=== PATIENT | male | born 1960 | race Caucasian/White ===

== ENCOUNTER 2020-03-06 12:00 | Inpatient (IN) | payer SELFPAY ==
[~2020-03-06] VITALS: Ht 182.9 cm; Wt 75.6 kg
--- NOTE | 2020-03-06 12:02 | ED General ---
General Chief Complaint: Altered Mental Status Stated Complaint: AMS Source of Information: Patient History of Present Illness Date Seen by Provider: Mar 06, 2020 Time Seen by Provider: 12:02 Initial Comments Patient is a 59 y/o male who comes to the ER today c/o diffuse weakness, dizziness, lightheadedness, and vomiting with diarrhea. He has been ill over the last month with recurrent diarrhea which he states he has recently lost control over. He has also been having loss of urinary control over the last week. C/o feeling very dizzy and generally weak, now too weak to feel steady even walking about his house. Symptoms have been occurring over the last month. He reports having labs completed last week and was eventually called by his provider and told to go to the hospital immediately possibly for something wrong with his liver. He does regularly drink 1/2 pint of hard liquor daily but denies prior hx of etoh w/d symptoms. Denies abdominal pain, blood in emesis or stool. No melena. Last emesis was earlier this am but he reports complete inability to keep any food or fluid down. Allergies and Home Medications Allergies Coded Allergies: codeine (Verified Allergy, Unknown, itching, 03/06/20) lisinopril (Verified Allergy, Unknown, angioedema , 03/06/20) Patient Home Medication List Home Medication List Reviewed: Yes Review of Systems Review of Systems Constitutional: chills, dizziness, malaise, weakness, weight loss EENTM: nose congestion Respiratory: phlegm Cardiovascular: no symptoms reported Gastrointestinal: see HPI Genitourinary: see HPI Musculoskeletal: see HPI, muscle weakness Skin: change in color All Other Systems Reviewed Negative Unless Noted: Yes Physical Exam Vital Signs Vital Signs - First Documented 03/06/20 12:06 Temp 35.8 Pulse 83 Resp 16 B/P (MAP) 133/87 (102) Pulse Ox 97 Capillary Refill : Height, Weight, BMI Height: '" Weight: lbs. oz. kg; BMI Method: General Appearance: Other (ill-appearing 59 y/o male but in no acute distress) Eyes: Bilateral Eye Conjunctivae Pale HEENT: PERRL/EOMI, TMs Normal, Pharynx Normal, Pale Conjunctivae (L) Neck: Full Range of Motion, Supple Respiratory: Lungs Clear Cardiovascular: Regular Rate, Rhythm, No Edema Gastrointestinal: Non Tender, Soft, Other (healed midline incision) Extremity: Normal Capillary Refill Neurologic/Psychiatric: Alert, Oriented x3, No Motor/Sensory Deficits, Normal Mood/Affect, Other (general weakness but no focal neurologic defecits) Skin: Jaundice, Other (pale) Focused Exam Lactate Level 03/06/20 12:10: Lactic Acid Level 2.34*H 03/06/20 15:00: Lactic Acid Level Laboratory Tests Test 03/06/20 12:10 03/06/20 15:00 Lactic Acid Level 2.34 MMOL/L (0.50-2.00) *H Progress/Results/Core Measures Suspected Sepsis SIRS Temperature: Pulse: Respiratory Rate: Laboratory Tests 03/06/20 12:10: White Blood Count 7.7 Blood Pressure / Mean: 03/06/20 12:10: Lactic Acid Level 2.34*H 03/06/20 15:00: Laboratory Tests 03/06/20 12:10: Creatinine 1.35H, INR Comment 0.9, Platelet Count 192, Total Bilirubin 2.8H Results/Orders Lab Results Laboratory Tests Test 03/06/20 12:10 03/06/20 13:39 03/06/20 15:00 Range/Units White Blood Count 7.7 4.3-11.0 10^3/uL Red Blood Count 3.01 L 4.35-5.85 10^6/uL Hemoglobin 10.6 L 13.3-17.7 G/DL Hematocrit 31 L 40-54 % Mean Corpuscular Volume 102 H 80-99 FL Mean Corpuscular Hemoglobin 35 H 25-34 PG Mean Corpuscular Hemoglobin Concent 35 32-36 G/DL Red Cell Distribution Width 13.5 10.0-14.5 % Platelet Count 192 130-400 10^3/uL Mean Platelet Volume 10.8 H 7.4-10.4 FL Neutrophils (%) (Auto) 81 H 42-75 % Lymphocytes (%) (Auto) 9 L 12-44 % Monocytes (%) (Auto) 10 0-12 % Eosinophils (%) (Auto) 0 0-10 % Basophils (%) (Auto) 0 0-10 % Neutrophils # (Auto) 6.2 1.8-7.8 X 10^3 Lymphocytes # (Auto) 0.7 L 1.0-4.0 X 10^3 Monocytes # (Auto) 0.7 0.0-1.0 X 10^3 Eosinophils # (Auto) 0.0 0.0-0.3 10^3/uL Basophils # (Auto) 0.0 0.0-0.1 10^3/uL Prothrombin Time 12.5 12.2-14.7 SEC INR Comment 0.9 0.8-1.4 Activated Partial Thromboplast Time 27 24-35 SEC Sodium Level 137 135-145 MMOL/L Potassium Level 3.6 3.6-5.0 MMOL/L Chloride Level 95 L 98-107 MMOL/L Carbon Dioxide Level 24 21-32 MMOL/L Anion Gap 18 H 5-14 MMOL/L Blood Urea Nitrogen 23 H 7-18 MG/DL Creatinine 1.35 H 0.60-1.30 MG/DL Estimat Glomerular Filtration Rate 54 BUN/Creatinine Ratio 17 Glucose Level 153 H 70-105 MG/DL Lactic Acid Level 2.34 *H 0.50-2.00 MMOL/L Calcium Level 9.0 8.5-10.1 MG/DL Corrected Calcium 9.5 8.5-10.1 MG/DL Total Bilirubin 2.8 H 0.1-1.0 MG/DL Aspartate Amino Transf (AST/SGOT) 409 H 5-34 U/L Alanine Aminotransferase (ALT/SGPT) 190 H 0-55 U/L Alkaline Phosphatase 270 H 40-136 U/L Troponin I < 0.30 <0.30 NG/ML Total Protein 6.7 6.4-8.2 GM/DL Albumin 3.4 3.2-4.5 GM/DL Serum Alcohol < 10 <10 MG/DL Urine Color RAMON H Urine Clarity CLEAR Urine pH 6.0 5-9 Urine Specific Covel 1.010 L 1.016-1.022 Urine Protein TRACE H NEGATIVE Urine Glucose (UA) NEGATIVE NEGATIVE Urine Ketones TRACE H NEGATIVE Urine Nitrite NEGATIVE NEGATIVE Urine Bilirubin 1+ H NEGATIVE Urine Urobilinogen 2.0 < = 1.0 MG/DL Urine Leukocyte Esterase NEGATIVE NEGATIVE Urine RBC (Auto) NEGATIVE NEGATIVE Urine RBC NONE /HPF Urine WBC 0-2 /HPF Urine Squamous Epithelial Cells 0-2 /HPF Urine Crystals NONE /LPF Urine Bacteria TRACE /HPF Urine Casts PRESENT /LPF Urine Hyaline Casts 0-2 H /LPF Urine Mucus NEGATIVE /LPF Urine Culture Indicated NO My Orders Orders - GALEAS,JONO L DO Ed Iv/Invasive Line Start (03/06/20 12:05) Cbc With Automated Diff (03/06/20 12:05) Comprehensive Metabolic Panel (03/06/20 12:05) Lactic Acid Analyzer (03/06/20 12:05) Troponin I Fs (03/06/20 12:05) Thyroid Stimulating Hormone (03/06/20 12:05) Alcohol (03/06/20 12:05) Protime With Inr (03/06/20 12:05) Partial Thromboplastin Time (03/06/20 12:05) Urinalysis (03/06/20 12:05) Ekg Tracing (03/06/20 12:05) Ns Iv 1000 Ml (Sodium Chloride 0.9%) (03/06/20 12:30) Ct Head Wo (03/06/20 12:52) Ct Chest/Abdomen/Pelvis W (03/06/20 12:52) Iohexol Injection (Omnipaque 350 Mg/Ml 1 (03/06/20 13:00) Received Contrast (Hold Metformin- Contr (03/06/20 13:00) Sodium Chloride Flush (Catheter Flush Sy (03/06/20 13:00) Ns (Ivpb) (Sodium Chloride 0.9% Ivpb Bag (03/06/20 13:00) Ns Iv 1000 Ml (Sodium Chloride 0.9%) (03/06/20 14:00) Lipase (03/06/20 14:47) Medications Given in ED Current Medications Medications Dose Ordered Sig/Estela Route Start Time Stop Time Status Last Admin Dose Admin Iohexol 100 ml ONCE ONCE IV 03/06/20 13:00 03/06/20 13:01 DC 03/06/20 13:18 100 ML Sodium Chloride 10 ml NEEDED PRN IV 03/06/20 13:00 03/06/20 13:18 10 ML Sodium Chloride 100 ml ONCE ONCE IV 03/06/20 13:00 03/06/20 13:01 DC 03/06/20 13:18 80 ML Vital Signs/I&O 03/06/20 12:06 Temp 35.8 Pulse 83 Resp 16 B/P (MAP) 133/87 (102) Pulse Ox 97 Capillary Refill : Progress Note : Time: 10:15 Progress Note Patient is seen and examined. Labs ordered. Will check EKG and give IVF's. UA. He does not c/o pain at this time. ED Summary: Patient seen in the emergency department for generalized weakness. This was true on physical exam. Patient had difficulty even taking a few steps across his exam room. He did not have any focal neurologic complaints. He also endorses significant weight loss in recent weeks. CT scan of the head was com pleted primary to rule out any mass effect and this was not present. CT scan of the abdomen and pelvis was also completed and this was revealing only for known history of bypass graft surgeries and finding of fatty liver. No biliary tree pathology noted. On exam, the patient is mildly jaundiced and pale and weak appearing but with no focal neuro deficits. BUN/creatinine are mildly elevated as well as lactate. Patient is given 2 L of normal saline in the emergency department. Following this however he does not feel improved and continues to have generalized weakness. Feel that the patient may benefit from inpatient hydration therapy and further evaluation of his transaminitis and elevated bilirubin also. I spoke with Dr. Marin who is willing to admit the patient. Inpatient orders written and did request stool studies and right upper quadrant ultrasound. Patient denies that he has had withdrawal symptoms in the past and medical surgical bed is appropriate for this patient. He is agreeable to the plan of care. ECG Initial ECG Impression Date: Mar 06, 2020 Initial ECG Impression Time: 12:29 Initial ECG Rate: 82 Initial ECG Intervals: QT (prolonged) Departure Communication (Admissions) Time/Spoke to Admitting Phy: 14:50 Dr. Marin Impression Primary Impression: Diarrhea Additional Impressions: Dehydration Generalized weakness Elevated bilirubin Transaminitis Disposition: ADMITTED INPATIENT Condition: Improved Admissions Decision to Admit Reason: Admit from ER (General) Decision to Admit/Date: Mar 06, 2020 Time/Decision to Admit Time: 14:30 JONO GALEAS DO Mar 06, 2020 12:02
--- OUTSIDE RECORDS SUMMARY | 2020-03-06 12:07 | XMS REPORT ---
Author Author Rya DUMONT Organization [facility] Address [address] [place] [address] Care Team Providers Care Air Defense Specialist Name Role Phone MONIQUE DUMONT Unavailable PROBLEMS Type Condition ICD9-CM Code [id number] Code Onset Dates Condition S tatus SNOMED Code Problem Coronary artery disease invo lving [place] coronary artery of [place] heart without angina pectoris I25.10 Active 1641 792002642 Problem Essential hypertension I10 Active 54298373 Problem History of myocardial infarct at age less than 60 years I25.2 Active 903380207 Problem Hypercholesteremia E78.00 Active 1 0945765 Problem Situational depression F43.21 Active 69693096 Problem Peripheral arterial disease I73.9 Ac tive 225513947 ALLERGIES Substance Reaction Event Type Date Status Lisinopril Swelling Drug Allergy Sep, Active Codeine Phosphate itching Drug Allergy Sep, Active Abilify dizziness Drug Allergy Sep, Active ENCOUNTERS Encounter Location Date Diagnosis [address] [address] Sep, Situational depression F43.21 ; [facility] hypertension I10 and Peripheral arterial disease I73.[address] [address] Aug, Situational depression F43.21 ; Coronary artery disease involving [place] coronary artery of [place] heart without angina pectoris I25.10 ; History of myocardial infarct at age less than 60 years I25.2 ; Peripheral arterial disease I73.9 and Essential hypertension I10 IMMUNIZATIONS No Known Immunizations SOCIAL HISTORY Never Assessed REASON FOR VISIT Depression PLAN OF CARE Activity Details Follow Up 4 Weeks Reason:med refill VITAL SIGNS Height 72 in 2018 Heart Rate 80 bpm 2018 Respiratory Rate 18 2018 Blood pressure systolic 100 mmHg 2018 Blood pressure diastolic 80 mmHg 2018 MEDICATIONS Medication Instructions Dosage Frequency Start Date End Date Duration S tat Alprazolam 0.5 mg Orally Twice a day 1 tablet am and half tablet pm as needed 12h 28 days Active Protonix 40 MG Orally Once a day 1 tablet 24h 30 day (s) Active Plavix 75 MG Orally Once a day 1 tablet 24h 30 day(s ) Active Toprol XL 100 MG Orally Once a day 1 tablet 24h 30 d ay(s) Active Aspirin 81 81 MG Orally Once a day 1 tablet 24h 30 d ay(s) Active Lipitor 80 MG Orally Once a day 1 tablet 24h 30 day( s) Active Amlodipine Besylate 5 MG Orally Once a day 1 tablet 24h 30 day(s) Active Citalopram Hydrobromide 40 MG Orally Once a day 1 tablet 24h 30 day(s) Active Nitroglycerin 0.4 MG as directed Active Microzide 12.5 MG Orally Once a day 1 capsule in the morning 24h 30 day(s) Active Trazodone HCl 50 MG Orally Once a day 1 tablet at bedtime as needed 24h Sep, 30 day(s) Active Losartan Potassium 50 MG Orally Once a day 1 tablet 24h 30 day(s) Active RESULTS No Results PROCEDURES Procedure Date Ordered Result Body Site VENIPUNCT, ROUTINE* 2018 COMPREHEN METABOLIC PANEL 2018 09 PANEL (PROFILE 1) 2018 INSTRUCTIONS MEDICATIONS ADMINISTERED No Known Medications MEDICAL (GENERAL) HISTORY Type Description Date Medical History depression Medical History hypertension Medical History myocardial infarction Medical History Incisional Hernia Medical History Pure hypercholesterolemia, unspecified Surgical History Ventral hernia repair 2015 Surgical History abdominal aorta/iliac graft 2014 Surgical History Coronary artery stent 2014 Surgical History inguinal hernia repair
--- OUTSIDE RECORDS SUMMARY | 2020-03-06 12:07 | XMS REPORT | Continuity of Care Document ---
Author Organization Unknown Address Unknown Phone Unavailable Allergies There is no data. Medications There is no data. Problems There is no data. Procedures There is no data. Results Test Result Range - 09 PANEL (PROFILE 1) - 10/01/18 14 :45 Prescribed Drug 1 Alprazolam NRG Creatinine 173.0 mg/dL > or = 20.0 pH 6.55 4.5 - 9.0 Oxidant NEGATIVE mcg/mL <200 Amphetamines NEGATIVE ng/mL <500 medMATCH Amphetamines CONSISTENT NRG Benzodiazepines POSITIVE ng/mL <100 Marijuana Metabolite POSITIVE ng/mL <20 Cocaine Metabolite NEGATIVE ng/mL <150 medMATCH Cocaine Metab CONSISTENT NRG Opiates NEGATIVE ng/mL <100 medMATCH Opiates CONSISTENT NRG Oxycodone NEGATIVE ng/mL <100 medMATCH Oxycodone CONSISTENT NRG COMMENT NRG Alphahydroxyalprazolam 236 ng/mL <25 medMATCH aOH alprazolam CONSISTENT NRG Alphahydroxymidazolam NEGATIVE ng/mL < 50 medMATCH aOH midazolam CONSISTENT NRG Alphahydroxytriazolam NEGATIVE ng/mL < 50 medMATCH aOH triazolam CONSISTENT NRG Aminoclonazepam 68 ng/mL <25 medMATCH Aminoclonazepam INCONSISTENT N RG Hydroxyethylflurazepam NEGATIVE ng/mL <50 medMATCH OH,Et flurazepam CONSISTENT NR G Lorazepam NEGATIVE ng/mL <50 medMATCH Lorazepam CONSISTENT NRG Nordiazepam NEGATIVE ng/mL <50 medMATCH Nordiazepam CONSISTENT NRG Oxazepam NEGATIVE ng/mL <50 medMATCH Oxazepam CONSISTENT NRG Temazepam NEGATIVE ng/mL <50 medMATCH Temazepam CONSISTENT NRG Marijuana Metabolite 418 ng/mL <5 medMATCH Marijuana Metab INCONSISTENT N RG Barbiturates NEGATIVE ng/mL <300 medMATCH Barbiturates CONSISTENT NRG Methadone Metabolite NEGATIVE ng/mL <100 medMATCH Methadone Metab CONSISTENT NRG Phencyclidine NEGATIVE ng/mL <25 medMATCH Phencyclidine CONSISTENT NRG PDM - 09 PANEL (PROFILE 1) - 12/30/18 16 :30 Prescribed Drug 1 Alprazolam NRG Creatinine 246.1 mg/dL > or = 20.0 pH 5.61 4.5 - 9.0 Oxidant NEGATIVE mcg/mL <200 Amphetamines NEGATIVE ng/mL <500 medMATCH Amphetamines CONSISTENT NRG Benzodiazepines POSITIVE ng/mL <100 Marijuana Metabolite POSITIVE ng/mL <20 Cocaine Metabolite NEGATIVE ng/mL <150 medMATCH Cocaine Metab CONSISTENT NRG Opiates NEGATIVE ng/mL <100 medMATCH Opiates CONSISTENT NRG Oxycodone NEGATIVE ng/mL <100 medMATCH Oxycodone CONSISTENT NRG COMMENT NRG Alphahydroxyalprazolam 486 ng/mL <25 medMATCH aOH alprazolam CONSISTENT NRG Alphahydroxymidazolam NEGATIVE ng/mL < 50 medMATCH aOH midazolam CONSISTENT NRG Alphahydroxytriazolam NEGATIVE ng/mL < 50 medMATCH aOH triazolam CONSISTENT NRG Aminoclonazepam NEGATIVE ng/mL <25 medMATCH Aminoclonazepam CONSISTENT NRG Hydroxyethylflurazepam NEGATIVE ng/mL <50 medMATCH [place],Et flurazepam CONSISTENT NR G Lorazepam NEGATIVE ng/mL <50 medMATCH Lorazepam CONSISTENT NRG Nordiazepam NEGATIVE ng/mL <50 medMATCH Nordiazepam CONSISTENT NRG Oxazepam NEGATIVE ng/mL <50 medMATCH Oxazepam CONSISTENT NRG Temazepam NEGATIVE ng/mL <50 medMATCH Temazepam CONSISTENT NRG Marijuana Metabolite 547 ng/mL <5 medMATCH Marijuana Metab INCONSISTENT N RG Barbiturates NEGATIVE ng/mL <300 medMATCH Barbiturates CONSISTENT NRG Methadone Metabolite NEGATIVE ng/mL <100 medMATCH Methadone Metab CONSISTENT NRG Phencyclidine NEGATIVE ng/mL <25 medMATCH Phencyclidine CONSISTENT NRG CBC - 10/14/19 14:13 WHITE BLOOD CELL COUNT 5.8 Thousand/uL 3 .8-10.8 RED BLOOD CELL COUNT 4.13 Million/uL 4.2 0-5.80 HEMOGLOBIN 15.1 g/dL 13.2-17.1 HEMATOCRIT 42.2 % 38.5-50.0 MCV 102.2 fL 80.0-100.0 MCH 36.6 pg 27.0-33.0 MCHC 35.8 g/dL 32.0-36.0 RDW 11.7 % 11.0-15.0 PLATELET COUNT 175 Thousand/uL 140-400 MPV 10.3 fL 7.5-12.5 ABSOLUTE NEUTROPHILS 4222 cells/uL 1500- 7800 ABSOLUTE LYMPHOCYTES 864 cells/uL 850-39 00 ABSOLUTE MONOCYTES 673 cells/uL 200-950 ABSOLUTE EOSINOPHILS 12 cells/uL 15-500 ABSOLUTE BASOPHILS 29 cells/uL 0-200 NEUTROPHILS 72.8 % NRG LYMPHOCYTES 14.9 % NRG MONOCYTES 11.6 % NRG EOSINOPHILS 0.2 % NRG BASOPHILS 0.5 % NRG Encounters ACCT No. Visit Date/Time Discharge Status Pt. Type Provider Facility Loc./Unit Complaint [id number] 01/22/2019 14:00:00 01/22/2019 23:59: 59 [facility] [id number] 10/14/2019 13:30:00 Document Registration [id number] 12/30/2018 13:00:00 Document Registration [id number] 2018 13:00:00 Document Registration [id number] 03/06/2020 12:03:[address] Emergency JONO GALEAS DO [facility] ER FS AMS
--- OUTSIDE RECORDS SUMMARY | 2020-03-06 12:07 | XMS REPORT ---
Author Author Ray DUMONT Organization [facility] Address [address] [place] [address] Care Team Providers Care Railroad Firer Name Role Phone MONIQUE DUMONT Unavailable PROBLEMS Type Condition ICD9-CM Code [id number] Code Onset Dates Condition S tatus SNOMED Code Problem Hypercholesteremia E78.00 Active 1 7032229 Problem Situational depression F43.21 Active 41234129 Problem Peripheral arterial disease I73.9 Ac tive 068744291 Problem Alcohol withdrawal syndrome without complication F 10.230 Active 154338005 Problem Alcohol use disorder, severe, dependence F10.20 Active 953199154 Problem Coronary artery disease invo lving [place] coronary artery of [place] heart without angina pectoris I25.10 Active 1641 860009011 Problem Essential hypertension I10 Active 00414930 Problem History of myocardial infarct at age less than 60 years I25.2 Active 140989661 Problem Alcohol withdrawal syndrome with complication F10. 239 Active 325884336 ALLERGIES No Information ENCOUNTERS Encounter Location Date Diagnosis [address] [id number] [address] Sep, [address] [id number] [address] Sep, Alcohol use disorder, severe , dependence F10.20 ; Essential hypertension I10 ; Hypercholesteremia E78.00 and Alcohol withdrawal syndrome without complication F10.[address] [id number] [address] Sep, [address] [id number] [address] Sep, Alcohol withdrawal syndrome with complication F10.239 ; Essential hypertension I10 and Hypercholesteremia E78.[address] [id number] [place] [address] Jun, [facility] [address] [id number] [place] [address] Feb, [facility] [address] [id number] [place] [address] Feb, Situational depression F43.2 1 [facility] [address] [id number] [place] [address] Feb, [facility] [address] [id number] [place] [address] Jan, Situational depression F43.2 1 [facility] [address] [id number] [place] [address] Dec, Situational depression F43.2 1 ; Essential hypertension I10 and Hypercholesteremia E78.00 [facility] [address] [id number] [place] [address] Dec, Situational depression F43.2 1 [facility] [address] [id number] [place] [address] Dec, [facility] [address] [id number] [place] [address] Dec, [facility] [address] [id number] [place] [address] Dec, High risk medications (not a nticoagulants) long-term use Z79.899 ; Situational depression F43.21 and Essential hypertension I10 [facility] [address] [id number] [place] [address] November, Situational depression F43.2 1 [facility] [address] [id number] [place] [address] Oct, Situational depression F43.2 1 [facility] [address] [id number] [place] [address] Oct, [address] [id number] [place] [address] Oct, Situational depression F43.[address] [id number] [place] [address] Sep, Situational depression F43.2 1 ; Essential hypertension I10 and Peripheral arterial disease I73.[address] [id number] [place] [address] Aug, Situational depression F43.2 1 ; Coronary artery disease involving [place] coronary artery of [place] heart without angina pectoris I25.10 ; History of myocardial infarct at age less than 60 years I25.2 ; Peripheral arterial disease I73.9 and Essential hypertension I10 IMMUNIZATIONS No Known Immunizations SOCIAL HISTORY Never Assessed REASON FOR VISIT Controlled Med Refill PLAN OF CARE VITAL SIGNS MEDICATIONS Medication Instructions Dosage Frequency Start Date End Date Duration S tatus Alprazolam 0.5 mg Orally Twice a day 1 tablet am and half tablet pm as needed 12h 28 days Active RESULTS No Results PROCEDURES No Known procedures INSTRUCTIONS MEDICATIONS ADMINISTERED No Known Medications MEDICAL (GENERAL) HISTORY Type Description Date Medical History depression Medical History hypertension Medical History myocardial infarction Medical History Incisional Hernia Medical History Pure hypercholesterolemia, unspecified Surgical History Ventral hernia repair 2015 Surgical History abdominal aorta/iliac graft 2014 Surgical History Coronary artery stent 2014 Surgical History inguinal hernia repair Surgical History vascular repair, 19 inchest Surgical History heart attack 2013 Hospitalization History surgeries
[2020-03-06] MEDS ORDERED: METO50TA7 PO (12:14)
[2020-03-06] MEDS ORDERED: CLOP75TA28 PO (12:14)
[2020-03-06] MEDS ORDERED: CITA40TA11 PO (12:14)
[2020-03-06] MEDS ORDERED: AMLO5TAB9 PO (12:14)
[2020-03-06] MEDS ORDERED: PANT40TA3 PO (12:14)
[2020-03-06] MEDS ORDERED: LOSA25TA41 PO (12:14)
[2020-03-06] MEDS ORDERED: TRZ50T PO (12:14)
[2020-03-06] MEDS ORDERED: NS IV 1000 ML 1,000 ML IV SCH (12:30)
[2020-03-06 12:35] LABS: HEMOGLOBIN 10.6 G/DL (13.3-17.7); MEAN CORPUSCULAR HEMOGLOBIN 35 PG (25-34); WHITE BLOOD COUNT 7.7 10^3/uL (4.3-11.0)
[2020-03-06 12:36] LABS: BASOPHILS % (AUTO) 0 % (0-10); EOSINOPHILS % (AUTO) 0 % (0-10); HEMATOCRIT 31 % (40-54); LYMPHOCYTES # (AUTO) 0.7 X 10^3 (1.0-4.0); LYMPHOCYTES % (AUTO) 9 % (12-44); MEAN CORPUSCULAR HGB CONC 35 G/DL (32-36); MEAN CORPUSCULAR VOLUME 102 FL (80-99); MEAN PLATELET VOLUME 10.8 FL (7.4-10.4); MONOCYTES # (AUTO) 0.7 X 10^3 (0.0-1.0); MONOCYTES % (AUTO) 10 % (0-12); NEUTROPHILS # (AUTO) 6.2 X 10^3 (1.8-7.8); NEUTROPHILS % (AUTO) 81 % (42-75); PLATELET COUNT 192 10^3/uL (130-400); RED CELL DISTRIBUTION WIDTH 13.5 % (10.0-14.5)
[2020-03-06 12:40] LABS: INR 0.9 (0.8-1.4); PROTHROMBIN TIME PATIENT 12.5 SEC (12.2-14.7)
[2020-03-06 12:47] LABS: CHLORIDE 95 MMOL/L (98-107); POTASSIUM 3.6 MMOL/L (3.6-5.0); SODIUM 137 MMOL/L (135-145)
[2020-03-06 12:48] LABS: ALANINE AMINOTRANSFERASE 190 U/L (0-55); ALKALINE PHOSPHATASE 270 U/L (40-136); BILIRUBIN,TOTAL 2.8 MG/DL (0.1-1.0); BUN/CREATININE RATIO 17; CARBON DIOXIDE 24 MMOL/L (21-32); CREATININE SERUM 1.35 MG/DL (0.60-1.30); GFR ESTIMATED 54; GLUCOSE 153 MG/DL (70-105); TOTAL PROTEIN 6.7 GM/DL (6.4-8.2)
[2020-03-06 12:49] LABS: ALBUMIN 3.4 GM/DL (3.2-4.5)
[2020-03-06] MEDS ORDERED: NS 100 ML (IVPB) BAG IV ONE (13:00)
[2020-03-06] MEDS ORDERED: HOLD METFORMIN - RECEIVED CONTRAST 20 ML VIAL IV SCH (13:00)
[2020-03-06] MEDS ORDERED: IOHEXOL 350 MG/ML 100 ML (OMNIPAQUE 350) VIAL IV ONE (13:00)
[2020-03-06] MEDS: CATHETER FLUSH 10 ML SYR IV PRN (13:18)
--- NOTE | 2020-03-06 13:40 | Diagnostic Imaging Report ---
PROCEDURE: CT head without contrast. TECHNIQUE: Multiple contiguous axial images were obtained through the brain without the use of intravenous contrast. Auto Exposure Controls were utilized during the CT exam to meet ALARA standards for radiation dose reduction. INDICATION: Altered mental status and weakness. FINDINGS: The ventricles and sulci are within normal limits. No hydrocephalus. No midline shift. No mass, hemorrhage or extra-axial fluid collection. There is opacification of the left frontal sinus, left ethmoid air cells and sphenoid sinus. Mastoid air cells are clear. IMPRESSION: No acute intracranial abnormality. There is mild chronic microvascular ischemic disease. Sinus disease as described. Dictated by: Dictated on workstation # [id number]
--- NOTE | 2020-03-06 13:44 | Diagnostic Imaging Report ---
EXAMINATION: CT Chest, Abdomen and Pelvis with intravenous contrast. TECHNIQUE: Multiple contiguous axial images were obtained through the chest, abdomen and pelvis after the uneventful administration of intravenous contrast. All CT scans use one or more of the following dose optimizing techniques: automated exposure control, MA and/or KvP adjustment based on a patient size and exam type, or iterative reconstruction. HISTORY: Weakness COMPARISON: None available. FINDINGS: There is no edema or pneumonia. No pleural effusion. No pneumothorax. No suspicious nodules. There is no axillary or supraclavicular lymphadenopathy. There is no mediastinal lymphadenopathy. Heart size is normal. There are moderate coronary artery calcifications. No pericardial effusion. Aorta is normal in caliber. Liver is severely steatotic. No suspicious liver lesions are seen. There is no biliary ductal dilation. Gallbladder is normal. Pancreas is normal. Spleen is normal. Adrenal glands are normal. Large cyst is seen in the right kidney. There are no suspicious renal lesions. There is no hydronephrosis. Urinary bladder is normal. Visualized bowel is normal in caliber without obstruction or inflammation. There is diverticulosis without diverticulitis. The appendix is normal. No free fluid or air. No abdominal or pelvic lymphadenopathy. There is a aorta bifemoral bypass graft. 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 There are no suspicious osseus lesions. IMPRESSION: 1. Severe hepatic steatosis. 2. 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 Dictated by: Dictated on workstation # [id number]
[2020-03-06 14:10] LABS: BILIRUBIN,URINE 1+ (NEGATIVE); CLARITY,URINE CLEAR; COLOR,URINE AMBER; GLUCOSE, URINE (UA) NEGATIVE (NEGATIVE); KETONES,URINE TRACE (NEGATIVE); NITRITE,URINE NEGATIVE (NEGATIVE); PROTEIN,URINE TRACE (NEGATIVE)
[2020-03-06 14:11] LABS: BACTERIA,URINE TRACE /HPF; HYALINE CASTS, URINE 0-2 /LPF; LEUKOCYTE ESTERASE ,URINE NEGATIVE (NEGATIVE); SQUAMOUS EPITHELIAL CELL,UR 0-2 /HPF; WBC,URINE 0-2 /HPF
[2020-03-06] MEDS: NS IV 1000 ML 1,000 ML IV SCH (14:32)
--- OUTSIDE RECORDS SUMMARY | 2020-03-06 16:36 | XMS REPORT | Continuity of Care Document ---
[...] Status Pt. Type Provider Facility Loc./Unit Complaint [id number] 01/22/2019 14:00:00 01/22/2019 23:59: 59 CLS [facility] [id number] 10/14/2019 13:30:00 Document Registration [id number] 12/30/2018 13:00:00 Document Registration [id number] 2018 13:00:00 Document Registration [id number] 03/06/2020 16:25:[address] Inpatient JUSTINE BEARDEN, YOEL Agarwal [address]
[2020-03-06] MEDS ORDERED: CHOLESTYRAMINE 4 GM (QUESTRAN LITE, PREVALITE) PKT PO ONE (16:45)
[2020-03-06] MEDS ORDERED: METOCLOPRAMIDE INJ 10 MG/2 ML (REGLAN) IV PRN (17:00)
[2020-03-06] MEDS ORDERED: diphenhydrAMINE 50 MG/ML INJ (BENADRYL) IV PRN (17:00)
[2020-03-06 17:18] VITALS: BP 148/98
[2020-03-06] MEDS: LACTATED RINGERS 1,000 ML IV SCH (18:02)
[2020-03-06 19:36] VITALS: BP 135/84
[2020-03-06] MEDS: traZODone 50 MG (DESYREL) TAB PO SCH (19:50)
[2020-03-07] VITALS: BP 131/73
[2020-03-07] MEDS: NS IV 1000 ML 1,000 ML IV SCH ×2 (00:02→09:22)
[2020-03-07] MEDS: LACTATED RINGERS 1,000 ML IV SCH ×4 (01:27→19:30)
[2020-03-07 04:00] VITALS: BP 130/89
[2020-03-07 05:26] LABS: BASOPHILS % (AUTO) 0 % (0-10); EOSINOPHILS % (AUTO) 0 % (0-10); HEMATOCRIT 27 % (40-54); HEMOGLOBIN 8.9 G/DL (13.3-17.7); LYMPHOCYTES # (AUTO) 0.8 X 10^3 (1.0-4.0); LYMPHOCYTES % (AUTO) 17 % (12-44); MEAN CORPUSCULAR HEMOGLOBIN 35 PG (25-34); MEAN CORPUSCULAR HGB CONC 34 G/DL (32-36); MEAN CORPUSCULAR VOLUME 104 FL (80-99); MEAN PLATELET VOLUME 10.7 FL (7.4-10.4); MONOCYTES # (AUTO) 0.6 X 10^3 (0.0-1.0); MONOCYTES % (AUTO) 12 % (0-12); NEUTROPHILS # (AUTO) 3.5 X 10^3 (1.8-7.8); NEUTROPHILS % (AUTO) 71 % (42-75); PLATELET COUNT 137 10^3/uL (130-400); RED CELL DISTRIBUTION WIDTH 14.3 % (10.0-14.5); WHITE BLOOD COUNT 4.9 10^3/uL (4.3-11.0)
[2020-03-07 05:47] LABS: ALANINE AMINOTRANSFERASE 152 U/L (0-55); ALBUMIN 2.7 GM/DL (3.2-4.5); ALKALINE PHOSPHATASE 189 U/L (40-136); BILIRUBIN,TOTAL 2.3 MG/DL (0.1-1.0); BUN/CREATININE RATIO 18; CARBON DIOXIDE 25 MMOL/L (21-32); CHLORIDE 105 MMOL/L (98-107); CREATININE SERUM 1.02 MG/DL (0.60-1.30); GFR ESTIMATED > 60; GLUCOSE 95 MG/DL (70-105); POTASSIUM 3.3 MMOL/L (3.6-5.0); SODIUM 139 MMOL/L (135-145); TOTAL PROTEIN 5.5 GM/DL (6.4-8.2)
[2020-03-07 08:25] VITALS: BP 153/87
[2020-03-07] MEDS: meTOproloL SUCCINATE 50 MG (TOPROL XL) TAB PO SCH (09:21)
[2020-03-07] MEDS: CLOPIDOGREL 75 MG (PLAVIX) TABLET PO SCH (09:21)
[2020-03-07] MEDS: amLODIPine 5 MG (NORVASC) TAB PO SCH (09:21)
[2020-03-07] MEDS: PANTOPRAZOLE 40 MG (PROTONIX) TAB PO SCH (09:21)
[2020-03-07] MEDS: FAMOTIDINE 20MG/2ML IV (PEPCID) IV SCH (09:22)
[2020-03-07] MEDS: metroNIDAZOLE 500 MG (FLAGYL) TAB PO SCH ×2 (10:40→20:40)
[2020-03-07 11:39] VITALS: BP 143/88
--- NOTE | 2020-03-07 13:31 | History & Physical-Hospitalist ---
History of Present Illness HPI/Chief Complaint This is a 59-year-old white male who presented to the emergency room with complaints of diarrhea and progressive weakness and inability to walk independently and care for himself. He notes that he's had watery diarrhea for about a month. C. difficile was positive today. He has been laid off work from his job at a [employer] and has not in visiting the long term are childcare facility nor has he been on a recent antibiotic. He does have a son who works as a Cook. Source: patient Exam Limitations: no limitations Date Seen 03/07/20 Time Seen by a Provider: 12:30 Attending Physician Roxy Marin MD PCP Denny Dixon MD Referring Physician Date of Admission Mar 06, 2020 at 16:25 Home Medications & Allergies Home Medications Reviewed patient Home Medication Reconciliation performed by pharmacy medication reconciliations tax map technician and/or nursing. Patients Allergies have been reviewed. Allergies Allergies Coded Allergies codeine (Verified Allergy, Unknown, itching, 03/06/20) lisinopril (Verified Allergy, Unknown, angioedema , 03/06/20) Past Cphygof-Nckpac-Cjnbrp Hx Past Med/Social Hx: Reviewed Nursing Past Med/Soc Hx Patient Social History Marrital Status: Employed/Student: unemployed Alcohol Use: Regular Use Alcohol Beverage of Choice: Whiskey Recreational Drug Use: Yes Drug of Choice: marijuana- used one week ago Smoking Status: Current Everyday Smoker Type Used: Cigarettes 2nd Hand Smoke Exposure: Yes Recent Foreign Travel: No Contact w/other who traveled: No Recent Infectious Disease Expo: No Past Medical History Surgeries: Abdominal, Vascular Surgery (Femoropopliteal) Respiratory: COPD Cardiac: Coronary Artery Disease, Peripheral Vascular Gastrointestinal: Abdominal Hernia (Has mesh) Family History Reviewed Nursing Family Hx Review of Systems Constitutional: see HPI, weakness, weight loss (40 pounds) Respiratory: dyspnea on exertion Cardiovascular: no symptoms reported Gastrointestinal: diarrhea Genitourinary: no symptoms reported Musculoskeletal: muscle pain, muscle weakness Skin: no symptoms reported Psychiatric/Neurological: Depressed, Weakness Physical Exam Physical Exam Vital Signs Vital Signs - First Documented 03/06/20 03/06/20 12:06 17:18 Temp 35.8 Pulse 83 Resp 16 B/P (MAP) 133/87 (102) Pulse Ox 97 O2 Delivery Room Air Capillary Refill : Less Than 3 Seconds Height, Weight, BMI Height: '" Weight: lbs. oz. kg; 22.59 BMI Method: General Appearance: Chronically ill, Other (Jaundiced) HEENT: Scleral Icterus (L), Scleral Icterus (R), Other (Poor dentition) Neck: Normal Inspection, Non Tender, Supple Respiratory: Chest Non Tender, Lungs Clear, Normal Breath Sounds, No Accessory Muscle Use, No Respiratory Distress Cardiovascular: No Edema, No Gallop, No JVD, No Murmur, Other (Decreased peripheral pulses on the right slightly improved on the left) Gastrointestinal: Normal Bowel Sounds, No Organomegaly, Non Tender, Soft Back: Normal Inspection Extremity: No Pedal Edema, Other (DC creased hair distribution) Neurologic/Psychiatric: Alert, Oriented x3, No Motor/Sensory Deficits, Normal Mood/Affect Skin: Jaundice Results Results/Procedures Labs Laboratory Tests 03/06/20 12:10 03/07/20 05:04 Patient resulted labs reviewed. Imaging: Reviewed Imaging Report Assessment/Plan Admission Diagnosis Diarrhea with weight loss C to positive started on Flagyl and Questran Elevated liver function tests most likely secondary to chronic alcohol abuse Tobaccoism Peripheral vascular disease Coronary artery disease Admission Status: Inpatient Order (span 2 midnights) Reason for Inpatient Admission: Patient will need further evaluation because of the weight lost and hepatic steatosis with elevated liver function tests Clinical Quality Measures DVT/VTE Risk/Contraindication: Risk Factor Score Per Nursin RFS Level Per Nursing on Admit: 2=Moderate ROXY MRAIN MD Mar 07, 2020 13:31
[2020-03-07 16:30] VITALS: BP 141/93
[2020-03-07 20:28] VITALS: BP 122/77
[2020-03-07] MEDS: LOSARTAN 25 MG (COZAAR) TAB PO SCH (20:40)
[2020-03-07] MEDS: traZODone 50 MG (DESYREL) TAB PO SCH (20:40)
[2020-03-08] VITALS (7 sets, daily range): BP systolic 125–165; BP diastolic 75–90
[2020-03-08 05:17] LABS: BASOPHILS % (AUTO) 0 % (0-10); EOSINOPHILS % (AUTO) 1 % (0-10); HEMATOCRIT 25 % (40-54); HEMOGLOBIN 8.4 G/DL (13.3-17.7); LYMPHOCYTES % (AUTO) 19 % (12-44); MEAN CORPUSCULAR HEMOGLOBIN 35 PG (25-34); MEAN CORPUSCULAR HGB CONC 33 G/DL (32-36); MEAN CORPUSCULAR VOLUME 105 FL (80-99); MONOCYTES # (AUTO) 0.5 X 10^3 (0.0-1.0); MONOCYTES % (AUTO) 10 % (0-12); NEUTROPHILS # (AUTO) 3.5 X 10^3 (1.8-7.8); NEUTROPHILS % (AUTO) 70 % (42-75); PLATELET COUNT 118 10^3/uL (130-400); RED CELL DISTRIBUTION WIDTH 14.3 % (10.0-14.5)
[2020-03-08 05:28] LABS: ALBUMIN 2.5 GM/DL (3.2-4.5)
[2020-03-08 05:29] LABS: CHLORIDE 105 MMOL/L (98-107); POTASSIUM 3.2 MMOL/L (3.6-5.0); SODIUM 140 MMOL/L (135-145)
[2020-03-08 05:31] LABS: GLUCOSE 101 MG/DL (70-105); TOTAL PROTEIN 5.3 GM/DL (6.4-8.2)
[2020-03-08 05:32] LABS: CARBON DIOXIDE 26 MMOL/L (21-32)
[2020-03-08 05:34] LABS: ALKALINE PHOSPHATASE 179 U/L (40-136)
[2020-03-08 05:35] LABS: CREATININE SERUM 1.05 MG/DL (0.60-1.30); GFR ESTIMATED > 60
[2020-03-08 05:36] LABS: BUN/CREATININE RATIO 11
[2020-03-08 05:38] LABS: ALANINE AMINOTRANSFERASE 164 U/L (0-55)
[2020-03-08] MEDS: LACTATED RINGERS 1,000 ML IV SCH ×3 (06:13→20:39)
[2020-03-08] MEDS: metroNIDAZOLE 500 MG (FLAGYL) TAB PO SCH (08:35)
[2020-03-08] MEDS: PANTOPRAZOLE 40 MG (PROTONIX) TAB PO SCH (08:35)
[2020-03-08] MEDS: meTOproloL SUCCINATE 50 MG (TOPROL XL) TAB PO SCH (08:35)
[2020-03-08] MEDS: FAMOTIDINE 20MG/2ML IV (PEPCID) IV SCH (08:36)
[2020-03-08] MEDS: CATHETER FLUSH 10 ML SYR IV PRN (08:36)
[2020-03-08] MEDS: CLOPIDOGREL 75 MG (PLAVIX) TABLET PO SCH (08:36)
[2020-03-08] MEDS: amLODIPine 5 MG (NORVASC) TAB PO SCH (08:36)
[2020-03-08] MEDS: LOSARTAN 25 MG (COZAAR) TAB PO SCH ×2 (08:36→20:38)
[2020-03-08] MEDS: VANCOMYCIN 50 MG/ML ORAL SOLN 150 ML PO SCH ×3 (10:19→20:39)
--- NOTE | 2020-03-08 10:19 | Progress Note - Hospitalist ---
Subjective HPI/CC On Admission Date Seen by Provider: Mar 08, 2020 Time Seen by Provider: 10:15 This is a 59-year-old white male who presented to the emergency room with complaints of diarrhea and progressive weakness and inability to walk independently and care for himself. He notes that he's had watery diarrhea for about a month. C. difficile was positive today. He has been laid off work from his job at a [employer] and has not in visiting the [facility] childcare facility nor has he been on a recent antibiotic. He does have a son who works as a Cook. Subjective/Events-last exam Pt has lost 120lbs in the last six months Overall very weak Bowels still are very loose Starting Vancomycin PO liquid QID Had some blood on the floor, maybe from the diarrhea Will initiate PT and OT also Pt appears to be very chronically ill Alcoholism, with elevated liver enzymes with alcoholic hepatitis noted Review of Systems General: Fatigue, Malaise Gastrointestinal: Diarrhea Focused Exam Lactate Level 03/06/20 12:10: Lactic Acid Level 2.34*H 03/06/20 15:00: Lactic Acid Level 0.90 Objective Exam Vital Signs Vital Signs Date Time Temp Pulse Resp B/P (MAP) Pulse Ox O2 Delivery O2 Flow Rate FiO2 03/08/20 19:24 37.3 80 16 139/86 (103) 98 Room Air Capillary Refill : Less Than 3 Seconds General Appearance: No Apparent Distress, WD/WN, Chronically ill, Thin Respiratory: Chest Non Tender, Lungs Clear, Normal Breath Sounds, No Accessory Muscle Use, No Respiratory Distress Cardiovascular: Regular Rate, Rhythm, No Edema, No Gallop, No JVD, No Murmur, Normal Peripheral Pulses Neurologic/Psychiatric: Alert, Oriented x3, No Motor/Sensory Deficits, Normal Mood/Affect Results/Procedures Lab Laboratory Tests 03/08/20 04:45 Patient resulted labs reviewed. Imaging: Reviewed Imaging Report Assessment/Plan Assessment and Plan Assess & Plan/Chief Complaint Assessment: C.Diff colitis Severe weight loss 120 pounds in past six months Chronic pain Acute alcoholic hepatitis Plan: Supportive care Vancomycin po IV fluids Diagnosis/Problems Diagnosis/Problems (1) C. difficile colitis (2) Transaminitis Status: Acute (3) Generalized weakness Status: Acute (4) Elevated bilirubin Status: Acute (5) Diarrhea Status: Acute (6) Dehydration Status: Acute Clinical Quality Measures DVT/VTE Risk/Contraindication: Risk Factor Score Per Nursin RFS Level Per Nursing on Admit: 2=Moderate COLEMAN PINTO DO Mar 08, 2020 10:19
--- NOTE | 2020-03-08 10:23 | Diagnostic Imaging Report ---
PROCEDURE: US Hepatic (Liver). TECHNIQUE: Multiple Real-time grayscale images were obtained over the right upper quadrant in various projections. INDICATION: Elevated liver enzymes. FINDINGS: The liver is enlarged to 22 cm. There is diffuse increased echogenicity throughout the liver, consistent with hepatic steatosis. The portal vein is patent and shows normal direction of flow. The gallbladder appears to contain sludge. There is also wall thickening measuring up to 6 mm with minimal pericholecystic fluid. No definite biliary ductal dilatation is identified. The aorta was not visualized. The pancreas is poorly visualized. The IVC is patent. The right kidney does contain a large cyst in the upper pole measuring approximately 7.5 cm in size. There is no ascites. IMPRESSION: 1. Hepatomegaly and hepatic steatosis. 2. Gallbladder sludge with gallbladder wall thickening up to 6 mm. Acalculus cholecystitis cannot be entirely excluded. A HIDA scan may be useful for further evaluation. 3. Large right renal cyst. Dictated by: Dictated on workstation # [id number]
[2020-03-08] MEDS ORDERED: ASPI-983 PO (11:29)
--- NOTE | 2020-03-08 11:30 | NUR ---
SPOKE WITH THE PT ( I CALLED HIS ROOM PHONE) AND WENT THRU THE EXT MED HISTORY TO COMPLETE THE MED REC PT WAS ABLE TO TELL ME HOW/WHEN HE TAKES EACH MED-ALL HIS INFO MATCHED THE EXT MED HISTORY PT SAYS SHE TAKES ALL HIS MEDS AT [facility] EXCEPT TRAZODONE HE TAKES HS OTC MEDS: ASPIRIN 81
--- NOTE | 2020-03-08 13:35 | Physical Therapy Evaluation ---
PT Evaluation-General Medical Diagnosis Admission Date Mar 06, 2020 at 16:25 Medical Diagnosis: diarrhea, progressive weakness Onset Date: Mar 06, 2020 Therapy Diagnosis Therapy Diagnosis: impaired mobility, strength, endurance Precautions Precautions/Isolations: Fall Prevention, Standard Precautions, Contact/Enteric Isolation Referral Physician: Christina Lion DO Reason for Referral: Evaluation/Treatment Medical History Additional Medical History Past Medical History Surgeries: Abdominal, Vascular Surgery (Femoropopliteal) Respiratory: COPD Cardiac: Coronary Artery Disease, Peripheral Vascular Gastrointestinal: Abdominal Hernia (Has mesh) Reviewed History: Yes Social History Home: Single Level Current Living Status: Children Entry Into Home: Stairs Without Railing PT Steps Into Home: 2 Prior Prior Level of Function SCALE: Activities may be completed with or without assistive devices. 9-Sqktyfnwqe-ttlkobs completes the activity by him/herself with no assistance from a helper. 5-Set-up or Clean-up Assistance-helper sets up or cleans up; patient completes activity. [place] assists only prior to or following the activity. 4-Supervision or Touching Assistance-helper provides verbal cues and/or touching/steadying and/or contact guard assistance as patient completes activit y. Assistance may be provided throughout the activity or intermittently. 3-Partial/Moderate Assistance-helper does LESS THAN HALF the effort. [place] lifts, holds or supports trunk or limbs, but provides less than half the effort. 2-Substantial/Maximal Assistance-helper does MORE THAN HALF the effort. [place] lifts or holds trunk or limbs and provides more than half the effort. 0-Zsafdwgcg-vluyfs does ALL the effort. Patient does none of the effort to complete the activity. Or, the assistance of 2 or more helpers is required for the patient to complete the activity. If activity was not attempted, code reason: 7-Patient Refused. 9-Not Applicable-not attempted and the patient did not perform the activity before the current illness, exacerbation or injury. 10-Not Attempted due to Environmental Limitations-(lack of equipment, weather restraints, etc.). 88-Not Attempted due to Medical Conditions or Safety Concerns. Bed Mobility: 6 Transfers (B,C,W/C): 6 Gait: 6 Stairs: 6 Indoor Mobility (Ambulation): Independent Stairs: Independent PT Evaluation-Current Subjective Patient in bed pre tx, agrees to PT, has no complaints of pain. Pt/Family Goals to be independent at home Objective Patient Orientation: Person, Place Attachments: IV ROM/Strength ROM Lower Extremities WNL Strength Lower Extremities LLE (hip flexion 3/5, knee flexion 4/5, knee extension 4/5, dorsiflexion 4/5), RLE (hip flexion 3/5, knee flexion 4/5, knee extension 4/5, dorsiflexion 4/5) Sensory Vision: Functional Hearing: Functional Sensation Right Lower Extremit: Intact Sensation Left Lower Extremity: Intact Sensation Lower Extremities Patient states he has intermittent numbness and tingling in his legs. Transfers Roll Left to Right (QC): 6 Sit to Lying (QC): 6 Lying to Sitting/Side of Bed(Q: 6 Sit to Stand (QC): 4 Chair/Llk-rq-Tdcbd Xfer(QC): 4 Gait Does the Patient Walk?: Yes Mode of Locomotion: Walk Anticipated Mode of Locomotion: Walk Walk 10 feet (QC): 4 Distance: 25' Gait Assistive Device: FWW Comments/Gait Description Patient ambulates 25' inside his room with SBA, he gets tremors with fatigue. He was a little dizzy after sitting at the side of the bed but recovered with a short rest. Balance Sitting Static: Normal Sitting Dynamic: Normal Standing Static: Good Standing Dynamic: Good Treatment supine BLE exercises x20 (AP, QS, HS), patient had unusual extreme tremors in the right leg with fatigue performing heel slides Assessment/Needs Patient has impaired mobility, strength, endurance. He has tremors with fatigue. Needs walker to ambulate, he has been ambulating to the restroom with out a walker with nursing but feels much more confident using a walker. Rehab Potential: Fair PT Traffic Checker Goals Traffic Checker Goals PT Traffic Checker Goals Time Frame: Mar 15, 2020 Roll Left & Right (QC): 6 Sit to Lying (QC): 6 Lying-Sitting on Side/Bed(QC): 6 Sit to Stand (QC): 6 Chair/Utv-bn-Ohohh Xfer(QC): 6 Walk 10 feet (QC): 6 Walk 50ft with 2 Turns (QC): 6 Walk 150 ft (QC): 6 PT Plan Problem List Problem List: Activity Tolerance, Functional Strength, Safety, Balance, Gait, Transfer, ROM Treatment/Plan Treatment Plan: Continue Plan of Care Treatment Plan: Education, Functional Activity Jimena, Functional Strength, Gait, Safety, Therapeutic Exercise, Transfers Treatment Duration: Mar 15, 2020 Frequency: 6 times per week Estimated Hrs Per Day: .25 hour per day Patient and/or Family Agrees t: Yes Safety Risks/Education Patient Education: Gait Training, Transfer Techniques, Correct Positioning, Safety Issues Teaching Recipient: Patient Teaching Methods: Demonstration, Discussion Response to Teaching: Reinforcement Needed Discharge Recommendations Plan Patient will perform bed mobility and transfer training, balance and endurance training, functional strengthening, stair training, gait training, and education, to improve functional mobility and independence at home. Therapy Discharge Recommendati: Assisted Living, Post Acute PT Equpiment Recommendations-D/C: Front Wheeled Walker Time/GCodes Time In: 1307 Time Out: 1321 Total Billed Treatment Time: 14 Total Billed Treatment 1 visit ZAYRA SAWANT PT Mar 08, 2020 13:35
--- NOTE | 2020-03-08 13:44 | NUR ---
RD ASSESSMENT PMHx: COPD; CAD; ETOH use/abuse; c. diff + PT INTERACTION: Pt was awake and pleasant during consult for MST score. Pt states current appetite is pretty good. Note avg PO intake 50-75% x2d, per chart review. Pt states following a regular diet consisting mostly of "TV dinners." Pt states issues with chewing/swallowing food, as he is missing teeth. Pt states recent issues with nausea, vomiting, and diarrhea. Note last BM was 03/07, and pt not currently on bowel regimen per chart review. Pt states recent wt of 240# "back in August." Note current wt of 166# and note unable to determine recent wt hx, per chart review. Upon visual assessment, pt appears to be adequately nourished with no visible signs of muscle/fat wasting, with a BMI of 22.6 (Normal BMI for age). Given avg PO intake, wt hx, and visual assessment, pt does not meet criteria for malnutrition per ASPEN guidelines. ABNORMAL NUTRITION-RELATED LAB VALUES LOW: K 3.2; Ca 8.0; Pro 5.3; alb 2.5 HIGH: AST 304; ALT 164; alkphos 179; bili 2.0 Est. kcal needs: 1900 kcal | 25 kcal/kg Est. Pro needs: 60 g Pro | 0.8 g Pro/kg PES STATEMENT: Inadequate oral intake (NI-2.1) related to nausea | vomiting | diarrhea as evidenced by pt interview | avg PO intake 50-75% x2d INTERVENTION: Continue with current diet order of Ulcer/Peptic [place] diet. Pt may benefit from nutrition supplementation if PO intake declines. Will continue to follow and reassess as pt needs, intake, and status change. MONITOR/EVALUATE: PO Intake; Plan of Care; Hydration Status; Weight Status; Lab Values Holly Bautista, MS, RD, LD
--- NOTE | 2020-03-08 14:21 | Occupational Therapy Eval ---
OT Evaluation-General/PLF Medical Diagnosis Admission Date Mar 06, 2020 at 16:25 Medical Diagnosis: diarrhea, progressive weakness Onset Date: Mar 06, 2020 Therapy Diagnosis Therapy Diagnosis: decr self care, weakness, decr coordination, tremors, decr funct mobility Precautions Precautions/Isolations: Fall Prevention, Standard Precautions, Contact/Enteric Isolation Referral Physician: Christina Lion DO Referral Reason: Evaluation/Treatment Medical History Pertinent Medical History: CAD, COPD, PVD, Smoking Additional Medical History Abdominal hernia, repaired. Chronic alcohol use. Chronic pain Current History Admitted with weakness, dizziness, vomiting, diarrhea. 120 lb weight loss over 6 months. Diagnosed with c diff. Elevated bilirubin. Transaminitis Reviewed History: Yes Social History Home: Single Level Current Living Status: Children (adult son) Entry Into Home: Stairs Without Railing Steps Into Home: 2 ADL-Prior Level of Function SCALE: Activities may be completed with or without assistive devices. 7-Jkvioctlkh-hbbrbxw completes the activity by him/herself with no assistance from a helper. 5-Set-up or Clean-up Assistance-helper sets up or cleans up; patient completes activity. [place] assists only prior to or following the activity. 4-Supervision or Touching Assistance-helper provides verbal cues and/or touching/steadying and/or contact guard assistance as patient completes activity. Assistance may be provided throughout the activity or intermittently. 3-Partial/Moderate Assistance-helper does LESS THAN HALF the effort. [place] lifts, holds or supports trunk or limbs, but provides less than half the effort. 2-Substantial/Maximal Assistance-helper does MORE THAN HALF the effort. [place] lifts or holds trunk or limbs and provides more than half the effort. 1-Lvbxadize-qdqhuo does ALL the effort. Patient does none of the effort to complete the activity. Or, the assistance of 2 or more helpers is required for the patient to complete the activity. If activity was not attempted, code reason: 7-Patient Refused. 9-Not Applicable-not attempted and the patient did not perform the activity before the current illness, exacerbation or injury. 10-Not Attempted due to Environmental Limitations-(lack of equipment, weather restraints, etc.). 88-Not Attempted due to Medical Conditions or Safety Concerns. ADL PLOF Comments Pt reported that previously he had been able to take care of himself but has recently had more problems with weakness and incoordination. He said that now he has to sit to put on his pants and has fallen several times at home. 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 He has been driving. Self Care: Needed Some Help Functional Cognition: Independent OT Current Status Subjective Pt seen in room, up in bed, agreeable to OT. Pain reported 0/10. Appearance Alert, cooperative Mental Status/Objective Patient Orientation: Person, Place, Time, Situation Attachments: IV Current Hand Dominance: Right Upper Extremity ROM Grossly WFL bilat Upper Extremity Coordination Pt reported difficulties with buttons, pants zipper, opening packages, using his phone. He said that sometimes he has to use both hands to feed himself. Also reported difficulties opening front door at home. Upper Extremity Strength Grossly 4+/5 bilat except 4/5 shoulder flex bilat. Some tremors observed R UE with movement ADL-Treatment ADL-Current Pt reported that he has just started walking to bathroom - cautioned to wait for nursing help. He also said that he has been sitting on the edge of bed to use urinal and pleased that he has strength now to get there. He indicated that he needs help to get on/off toilet. He said that he has been able to feed himself but has trouble opening packages. He mentioned that sometimes he has double vision or dizziness. He also mentioned that he has fallen several times at home. He walked 25' with FWW with SBA with PT earlier today. Pt left up in bed, all needs met. Education OT Patient Education: Purpose of tx/functional activities, Rehab process, Safety issues Teaching Recipient: Patient Teaching Methods: Discussion Response to Teaching: Verbalize Understanding OT [facility] Goals Custodial Maintenance Worker Goals Time Frame: Mar 15, 2020 Eating (QC): 6 Oral Hygiene (QC): 6 Toileting Hygiene (QC): 6 Shower/Bathe Self (QC): 6 Upper Body Dressing (QC): 6 Lower Body Dressing (QC): 6 On/Off Footwear (QC): 6 Additional Goals: 1-Demonstrate ADL Tasks, 2-Verbalize Understanding, 3- ImproveStrength/[place] 1=Demonstrate adherence to instructed precautions during ADL tasks. 2=Patient will verbalize/demonstrate understanding of assistive devices/modifications for ADL. 3=Patient will improve strength/tolerance for activity to enable patient to perform ADL's. OT Education/Plan Problem List/Assessment Assessment: Decreased UE Strength, Dependent Transfers, Impaired Coordination, Impaired Self-Care Skills Pt would benefit from skilled OT to increase his independence in basic self care to allow him to safely return home. Discharge Recommendations Plan/Recommendations: Continue POC Treatment Plan/Plan of Care Treatment,Training & Education: Yes Patient would benefit from OT for education, treatment and training to promote independence in ADL's, mobility, safety and/or upper extremity function for ADL's. Plan of Care: ADL Retraining, Functional Mobility, UE Funct Exercise/Act, UE Neuromus Re-Ed/Coord Treatment Duration: Mar 15, 2020 Frequency: 5 times per week Estimated Hrs Per Day: .25 hour per day Agreement: Yes Rehab Potential: Fair Time/GCodes Start Time: 13:51 Stop Time: 14:07 Total Time Billed (hr/min): 16 Billed Treatment Time visit, 16 minutes evaluation moderate intensity GEOVANY CROWLEY OT Mar 08, 2020 14:21
[2020-03-08] MEDS: traZODone 50 MG (DESYREL) TAB PO SCH (20:38)
[2020-03-09] MEDS: VANCOMYCIN 50 MG/ML ORAL SOLN 150 ML PO SCH ×4 (03:37→20:48)
[2020-03-09 04:15] VITALS: BP 150/85
[2020-03-09 05:13] LABS: BASOPHILS % (AUTO) 0 % (0-10); EOSINOPHILS % (AUTO) 1 % (0-10); HEMATOCRIT 28 % (40-54); LYMPHOCYTES # (AUTO) 1.1 X 10^3 (1.0-4.0); LYMPHOCYTES % (AUTO) 16 % (12-44); MEAN CORPUSCULAR HEMOGLOBIN 34 PG (25-34); MEAN CORPUSCULAR HGB CONC 32 G/DL (32-36); MEAN CORPUSCULAR VOLUME 106 FL (80-99); MEAN PLATELET VOLUME 11.5 FL (7.4-10.4); MONOCYTES # (AUTO) 0.6 X 10^3 (0.0-1.0); MONOCYTES % (AUTO) 9 % (0-12); NEUTROPHILS # (AUTO) 4.8 X 10^3 (1.8-7.8); NEUTROPHILS % (AUTO) 74 % (42-75); PLATELET COUNT 113 10^3/uL (130-400); RED CELL DISTRIBUTION WIDTH 14.3 % (10.0-14.5); WHITE BLOOD COUNT 6.5 10^3/uL (4.3-11.0)
[2020-03-09 05:25] LABS: ALBUMIN 2.8 GM/DL (3.2-4.5); CHLORIDE 103 MMOL/L (98-107); POTASSIUM 3.8 MMOL/L (3.6-5.0); SODIUM 141 MMOL/L (135-145)
[2020-03-09 05:27] LABS: CALCIUM 8.3 MG/DL (8.5-10.1)
[2020-03-09 05:28] LABS: GLUCOSE 94 MG/DL (70-105); TOTAL PROTEIN 5.9 GM/DL (6.4-8.2)
[2020-03-09 05:29] LABS: CARBON DIOXIDE 28 MMOL/L (21-32)
[2020-03-09 05:30] LABS: BILIRUBIN,TOTAL 2.4 MG/DL (0.1-1.0)
[2020-03-09 05:31] LABS: ALKALINE PHOSPHATASE 188 U/L (40-136); CREATININE SERUM 1.11 MG/DL (0.60-1.30); GFR ESTIMATED > 60
[2020-03-09 05:33] LABS: BUN/CREATININE RATIO 10
[2020-03-09 05:34] LABS: ALANINE AMINOTRANSFERASE 168 U/L (0-55)
[2020-03-09 08:00] VITALS: BP 150/84
[2020-03-09] MEDS: PANTOPRAZOLE 40 MG (PROTONIX) TAB PO SCH (08:50)
[2020-03-09] MEDS: CLOPIDOGREL 75 MG (PLAVIX) TABLET PO SCH (08:50)
[2020-03-09] MEDS: meTOproloL SUCCINATE 50 MG (TOPROL XL) TAB PO SCH (08:51)
[2020-03-09] MEDS: LOSARTAN 25 MG (COZAAR) TAB PO SCH ×2 (08:51→20:48)
[2020-03-09] MEDS: FAMOTIDINE 20MG/2ML IV (PEPCID) IV SCH (08:51)
[2020-03-09] MEDS: amLODIPine 5 MG (NORVASC) TAB PO SCH (08:51)
[2020-03-09] MEDS: LACTATED RINGERS 1,000 ML IV SCH ×2 (08:57→16:38)
[2020-03-09] MEDS ORDERED: LORazepam 1 MG (ATIVAN) TAB PO PRN (09:30)
[2020-03-09] MEDS ORDERED: LORazepam INJ 2 MG/ML (ATIVAN) VIAL IM/IV PRN (09:30)
[2020-03-09] MEDS ORDERED: D5 1/2 NS 1000 ML IV SOLUTION 1,000 ML IV PRN (09:30)
[2020-03-09] MEDS ORDERED: 1/2 NS IV SOLUTION 1,000 ML IV PRN (09:30)
[2020-03-09] MEDS ORDERED: LORazepam INJ 2 MG/ML (ATIVAN) VIAL IV PRN (09:30)
--- NOTE | 2020-03-09 10:01 | Progress Note - Hospitalist ---
Subjective HPI/CC On Admission Date Seen by Provider: Mar 09, 2020 Time Seen by Provider: 10:15 This is a 59-year-old white male who presented to the emergency room with complaints of diarrhea and progressive weakness and inability to walk independently and care for himself. He notes that he's had watery diarrhea for about a month. C. difficile was positive today. He has been laid off work from his job at a [email or web address] and has not in visiting the correction are childcare facility nor has he been on a recent antibiotic. He does have a son who works as a Cook. Subjective/Events-last exam Pt feels a little shaky Will start on detox protocol C-Diff Colitis treated with Vancomycin PO Hgb stable at 9.0 PLTs 113,00 Liver ultrasound shows hepatomegaly and steatosis Gallbladder thickening noted so consulted Dr. Oscar Review of Systems General: Fatigue, Malaise Neurological: Weakness Focused Exam Lactate Level Objective Exam Vital Signs Vital Signs Date Time Temp Pulse Resp B/P (MAP) Pulse Ox O2 Delivery O2 Flow Rate FiO2 03/09/20 19:12 36.8 59 16 145/91 (109) 98 Room Air Capillary Refill : Less Than 3 Seconds General Appearance: No Apparent Distress, WD/WN Respiratory: Chest Non Tender, Lungs Clear, Normal Breath Sounds, No Accessory Muscle Use, No Respiratory Distress Cardiovascular: Regular Rate, Rhythm, No Edema, No Gallop, No JVD, No Murmur, Normal Peripheral Pulses Neurologic/Psychiatric: Alert, Oriented x3, No Motor/Sensory Deficits, Normal Mood/Affect Results/Procedures Lab Laboratory Tests 03/09/20 04:04 Patient resulted labs reviewed. Imaging: Reviewed Imaging Report Assessment/Plan Assessment and Plan Assess & Plan/Chief Complaint Assessment: C.Diff colitis Severe weight loss 120 pounds in past six months Chronic pain Acute alcoholic hepatitis Plan: Supportive care Vancomycin po IV fluids 03/09/20: Alcohol withdrawal protocol Appreciate Dr. Oscar to assess gallbladder thickening Treat c diff with Vancomycin po Monitor liver function Monitor hemoglobin of 9.0 Diagnosis/Problems Diagnosis/Problems (1) C. difficile colitis (2) Transaminitis Status: Acute (3) Generalized weakness Status: Acute (4) Elevated bilirubin Status: Acute (5) Diarrhea Status: Acute (6) Dehydration Status: Acute Clinical Quality Measures DVT/VTE Risk/Contraindication: Risk Factor Score Per Nursin RFS Level Per Nursing on Admit: 2=Moderate COLEMAN PINTO DO Mar 09, 2020 10:01
[2020-03-09] MEDS: CHOLESTYRAMINE 4 GM (QUESTRAN LITE, PREVALITE) PKT PO SCH ×2 (10:41→21:53)
--- NOTE | 2020-03-09 11:28 | Physical Therapy Daily Note ---
PT Daily Note-Current Subjective Patient agrees to PT. Patient reports he has been up independently in room without difficulty. Pain Numeric Pain Scale: 0-No Pain Location: No Pain Reported Mental Status Patient Orientation: Normal For Age Attachments: IV Transfers SCALE: Activities may be completed with or without assistive devices. 2-Vbwmhotjyp-oimesiq completes the activity by him/herself with no assistance from a helper. 5-Set-up or Clean-up Assistance-helper sets up or cleans up; patient completes activity. [place] assists only prior to or following the activity. 4-Supervision or Touching Assistance-helper provides verbal cues and/or touching/steadying and/or contact guard assistance as patient completes activity. Assistance may be provided throughout the activity or intermittently. 3-Partial/Moderate Assistance-helper does LESS THAN HALF the effort. [place] lifts, holds or supports trunk or limbs, but provides less than half the effort. 2-Substantial/Maximal Assistance-helper does MORE THAN HALF the effort. [place] lifts or holds trunk or limbs and provides more than half the effort. 5-Zoemgrwth-immpfp does ALL the effort. Patient does none of the effort to complete the activity. Or, the assistance of 2 or more helpers is required for the patient to complete the activity. If activity was not attempted, code reason: 7-Patient Refused. 9-Not Applicable-not attempted and the patient did not perform the activity before the current illness, exacerbation or injury. 10-Not Attempted due to Environmental Limitations-(lack of equipment, weather restraints, etc.). 88-Not Attempted due to Medical Conditions or Safety Concerns. Roll Left & Right (QC): 6 Sit to Lying (QC): 6 Lying to Sitting/Side of Bed(Q: 6 Sit to Stand (QC): 6 Gait Training Does the Patient Walk?: Yes Distance: 600' Walk 10 feet (QC): 6 Walk 50 ft with 2 Turns(QC): 6 Walk 150 ft (QC): 6 Gait Assistive Device: None safe and functional with no deviation with Good balance Assessment Patient is highly motivated with improvement in mobility and denies weakness or tremors. PT to dismiss patient from services at this time due to safe independence. PT Long-Term Goals Training And Development Manager Goals PT Training And Development Manager Goals Time Frame: Mar 15, 2020 Roll Left & Right (QC): 6 Sit to Lying (QC): 6 Lying-Sitting on Side/Bed(QC): 6 Sit to Stand (QC): 6 Chair/Uzy-ya-Zwfmm Xfer(QC): 6 Walk 10 feet (QC): 6 Walk 50ft with 2 Turns (QC): 6 Walk 150 ft (QC): 6 PT Plan Treatment/Plan Treatment Plan: Discontinue PT, goals met Treatment Plan: Education, Functional Activity [place], Functional Strength, Gait, Safety, Therapeutic Exercise, Transfers Treatment Duration: Mar 15, 2020 Frequency: 6 times per week Estimated Hrs Per Day: .25 hour per day Patient and/or Family Agrees t: Yes Time/GCodes Time In: 1020 Time Out: 1033 Total Billed Treatment Time: 13 Total Billed Treatment 1 visit FA 13 min BOBBY MOTA PT Mar 09, 2020 11:28
[2020-03-09 12:00] VITALS: BP 151/80
--- NOTE | 2020-03-09 13:21 | Occupational Ther Daily Note ---
OT Current Status-Daily Note Subjective Pt alert, lying in bed. Pt stated that he is feeling better and is able to get himself to the bathroom and around the room independently. No c/o pain at this time. Mental Status/Objective Patient Orientation: Person, Place, Time, Situation Attachments: IV ADL-Treatment Therapy Code Descriptions/Definitions Functional [place] Measure: 0=Not Assessed/NA 4=Minimal Assistance 1=Total Assistance 5=Supervision or Setup 2=Maximal Assistance 6=Modified [place] 3=Moderate Assistance 7=Complete IndependenceSCALE: Activities may be completed with or without assistive devices. 7-Wbhuvqrtuy-xeashdj completes the activity by him/herself with no assistance from a helper. 5-Set-up or Clean-up Assistance-helper sets up or cleans up; patient completes activity. [place] assists only prior to or following the activity. 4-Supervision or Touching Assistance-helper provides verbal cues and/or touching/steadying and/or contact guard assistance as patient completes activity. Assistance may be provided throughout the activity or intermittently. 3-Partial/Moderate Assistance-helper does LESS THAN HALF the effort. [place] lifts, holds or supports trunk or limbs, but provides less than half the effort. 2-Substantial/Maximal Assistance-helper does MORE THAN HALF the effort. [place] lifts or holds trunk or limbs and provides more than half the effort. 1-Cvwwpvuwb-obvycg does ALL the effort. Patient does none of the effort to complete the activity. Or, the assistance of 2 or more helpers is required for the patient to complete the activity. If activity was not attempted, code reason: 7-Patient Refused. 9-Not Applicable-not attempted and the patient did not perform the activity before the current illness, exacerbation or injury. 10-Not Attempted due to Environmental Limitations-(lack of equipment, weather restraints, etc.). 88-Not Attempted due to Medical Conditions or Safety Concerns. Other Treatment Pt declined a shower at this time, stating that he was waiting for the doctor and then will take a shower. Medium resistance theraband exercises given to pt with theraband for use in room. Skilled instruction given for technique on posi tioning and modifications, 1 set 15 reps 6 exercises. Pt stated that he was tired and could feel his muscles after session. Pt able to go from supine <--> sit independently. Call light/phone in reach. All needs met in room. OT Intermediate Goals [employer] Assembler Goals Time Frame: Mar 15, 2020 Eating (QC): 6 Oral Hygiene (QC): 6 Toileting Hygiene (QC): 6 Shower/Bathe Self (QC): 6 Upper Body Dressing (QC): 6 Lower Body Dressing (QC): 6 On/Off Footwear (QC): 6 Additional Goals: 1-Demonstrate ADL Tasks, 2-Verbalize Understanding, 3-ImproveStrength/[place] 1=Demonstrate adherence to instructed precautions during ADL tasks. 2=Patient will verbalize/demonstrate understanding of assistive devices/modifications for ADL. 3=Patient will improve strength/tolerance for activity to enable patient to perform ADL's. OT Education/Plan Problem List/Assessment Assessment: Decreased Activ Tolerance, Decreased UE Strength Pt would benefit from skilled OT to increase his independence in basic self care to allow him to safely return home. Discharge Recommendations Plan/Recommendations: Continue POC Treatment Plan/Plan of Care Patient would benefit from OT for education, treatment and training to promote independence in ADL's, mobility, safety and/or upper extremity function for ADL's. Plan of Care: ADL Retraining, Functional Mobility, UE Funct Exercise/Act, UE Neuromus Re-Ed/Coord Treatment Duration: Mar 15, 2020 Frequency: 5 times per week Estimated Hrs Per Day: .25 hour per day Agreement: Yes Rehab Potential: Fair Time/GCodes Start Time: 13:00 Stop Time: 13:15 Total Time Billed (hr/min): 15 Billed Treatment Time 1 visit-EX 1 (15 min) GRACIA KEATING Mar 09, 2020 13:20
--- NOTE | 2020-03-09 13:45 | NUR ---
CM/SS visited with the patient for social service consult. The patient was in bed when this sw went to visit; however, Joi PT was in the room as well getting ready to work with patient. Home: The patient lives at home with his son and [id number]-he-vwl. He states that prior to this hospital stay he is independent at home and did not need any assistive devices. According to Physical Therapy notes, patient is doing well and will be discharged from their service tomorrow. Home Health: Patient has not had in the past. Denies caregivers. Equipment: None. Drug/Alcohol: The patient reports that he does drink alcohol. He states he drinks a pint daily. CM/SS asked the duration of use. He did not give specific number but stated "a long time". CM/SS asked if it was years. He verbalized yes. Patient stated he would like to quit drinking. Outpatient/Inpatient Treatment: CM/SS discussed the different options between outpatient through the [facility] ([facility]) and the [facility] in [place]. The patient reports that he was recently fired from his job and is without insurance. The only income he receives is from his unemployment. He states it is approximally 1,100 a month. CM/SS explained that [facility] works with patient's on a sliding fee scale, uninsured, and payment plans. The patient reports he still does not want to, due to financials. The patient also stated he does not want inpatient at this time. The patient reports that " I've have been in the hospital and haven't had any cold turkey", " So, I'll just go home and not drink". CM/SS attempted to provide education. CM/SS will continue to follow.
[2020-03-09 15:23] VITALS: BP 135/88
--- NOTE | 2020-03-09 16:40 | Consultation - Surgery ---
RACHEL ROWE MED STUDENT 03/09/20 1640: History of Present Illness History of Present Illness Patient Consulted On(yovanny/time) 03/09/20 16:34 Date Seen by Provider: Mar 09, 2020 Time Seen by Provider: 10:45 History of Present Illness Surgery consult for abdominal pain and gallbladder evaluation 59 y/o male presents for various worsening GI symptoms onset 9 months ago. Patient states he started experiencing lower abdominal pain followed by a significant urge to urinate and defecate, causing him to run to the restroom. Patent notes he has lost over 100 pounds since onset of symptoms. He also notes he has been feeling weak and has been experiencing shakiness. Urge to defecate and urinate as well as weakness worsened over the last few weeks, causing his and daughter to have him report to the [place] ER after which he was referred here. Pain does not radiate and abates promptly after voiding. Allergies and Home Medications Allergies Coded Allergies: codeine (Verified Allergy, Unknown, itching, 03/06/20) lisinopril (Verified Allergy, Unknown, angioedema , 03/06/20) Home Medications Amlodipine Besylate 5 Mg Tablet, 5 MG PO 1200, (Reported) Aspirin 81 Mg Tablet.dr, 81 MG PO 1200, (Reported) Citalopram Hydrobromide 40 Mg Tablet, 40 MG PO 1200, (Reported) Clopidogrel Bisulfate 75 Mg Tablet, 75 MG PO 1200, (Reported) Losartan Potassium 25 Mg Tablet, 25 MG PO 1200, (Reported) Metoprolol Succinate 50 Mg Tab.er.24h, 50 MG PO 1200, (Reported) Pantoprazole Sodium 40 Mg Tablet.dr, 40 MG PO 1200, (Reported) Trazodone HCl 50 Mg Tablet, 50 MG PO HS PRN for SLEEP, (Reported) Past Qqfuglv-Vczjjf-Pgiaco Hx Patient Social History Alcohol Use: Regular Use Recreational Drug Use: Yes Drug of Choice: marijuana- used one week ago Smoking Status: Current Everyday Smoker Type Used: Cigarettes 2nd Hand Smoke Exposure: Yes Recent Foreign Travel: No Contact w/Someone Who Travel: No Recent Infectious Disease Expo: No Surgeries Surgeries: Abdominal, Vascular Surgery (Femoropopliteal) Cardiovascular Cardiac Disorders: Coronary Artery Disease, Peripheral Vascular Gastrointestinal Gastrointestinal Disorders: Abdominal Hernia (Has mesh) Review of Systems-General Constitutional: weakness, weight loss Gastrointestinal: abdominal pain (bilateral lower quadrant, relieved by defecation ); No jaundice Genitourinary: No dysuria, No hesitancy Psychiatric/Neurological: Tremors; Denies Weakness Physical Exam-General Problems Physical Exam Vital Signs Vital Signs - First Documented 03/06/20 03/06/20 12:06 17:18 Temp 35.8 Pulse 83 Resp 16 B/P (MAP) 133/87 (102) Pulse Ox 97 O2 Delivery Room Air General Appearance: no apparent distress, thin Data Review Labs Laboratory Tests 03/09/20 04:04: White Blood Count 6.5, Red Blood Count 2.63L, Hemoglobin 9.0L, Hematocrit 28L, Mean Corpuscular Volume 106H, Mean Corpuscular Hemoglobin 34, Mean Corpuscular Hemoglobin Concent 32, Red Cell Distribution Width 14.3, Platelet Count 113L, Mean Platelet Volume 11.5H, Neutrophils (%) (Auto) 74, Lymphocytes (%) (Auto) 16, Monocytes (%) (Auto) 9, Eosinophils (%) (Auto) 1, Basophils (%) (Auto) 0, Neutrophils # (Auto) 4.8, Lymphocytes # (Auto) 1.1, Monocytes # (Auto) 0.6, Eosinophils # (Auto) 0.0, Basophils # (Auto) 0.0, Sodium Level 141, Potassium Level 3.8, Chloride Level 103, Carbon Dioxide Level 28, Anion Gap 10, Blood Urea Nitrogen 11, Creatinine 1.11, Estimat Glomerular Filtration Rate > 60, BUN/Creatinine Ratio 10, Glucose Level 94, Calcium Level 8.3L, Corrected Calcium 9.3, Total Bilirubin 2.4H, Aspartate Amino Transf (AST/SGOT) 280H, Alanine Aminotransferase (ALT/SGPT) 168H, Alkaline Phosphatase 188H, Total Protein 5.9L, Albumin 2.8L Microbiology 03/06/20 Stool Culture - Final, Complete See Comments Clinical Quality Measures DVT/VTE Risk/Contraindication: Risk Factor Score Per Nursin RFS Level Per Nursing on Admit: 2=Moderate CRUZ LEZAMA DO 03/09/20 1827: History of Present Illness History of Present Illness Time Seen by Provider: 12:50 History of Present Illness Pt states he has had some mild abdominal pain for awhile and that it usually occurs more when he twists. It is not associated with food or a certain time of day. He has never had an EGD or Colonoscopy. Pt states that he usually only eats 1 meal a day and hasn't really had much of an appetite since June. Allergies and Home Medications Allergies Coded Allergies: codeine (Verified Allergy, Unknown, itching, 03/06/20) lisinopril (Verified Allergy, Unknown, angioedema , 03/06/20) Home Medications Amlodipine Besylate 5 Mg Tablet, 5 MG PO 1200, (Reported) Aspirin 81 Mg Tablet.dr, 81 MG PO 1200, (Reported) Citalopram Hydrobromide 40 Mg Tablet, 40 MG PO 1200, (Reported) Clopidogrel Bisulfate 75 Mg Tablet, 75 MG PO 1200, (Reported) Losartan Potassium 25 Mg Tablet, 25 MG PO 1200, (Reported) Metoprolol Succinate 50 Mg Tab.er.24h, 50 MG PO 1200, (Reported) Pantoprazole Sodium 40 Mg Tablet.dr, 40 MG PO 1200, (Reported) Trazodone HCl 50 Mg Tablet, 50 MG PO HS PRN for SLEEP, (Reported) Patient Home Medication List Home Medication List Reviewed: Yes Past Zncwhkc-Siczix-Hhiaaf Hx Family Medical History Significant Family History: Diabetes, Hypertension Review of Systems-General Constitutional: weakness, weight loss EENTM: No blurred vision, No mouth swelling Respiratory: No cough, No hemoptysis, No short of breath Cardiovascular: No chest pain; Hx of Intervention; No palpitations Gastrointestinal: diarrhea Musculoskeletal: joint pain, joint swelling, muscle pain, muscle stiffness Psychiatric/Neurological: Denies Anxiety; Depressed, Tremors, Weakness Physical Exam-General Problems Physical Exam General Appearance: WD/WN, no apparent distress Eyes: Bilateral Eye PERRL, Bilateral Eye EOMI HEENT: pharynx normal; No scleral icterus (R), No scleral icterus (L) Neck: non-tender, supple Respiratory: chest non-tender, lungs clear, normal breath sounds, no respiratory distress, no accessory muscle use Cardiovascular: regular rate, rhythm, no murmur Gastrointestinal: soft, no organomegaly, other (can feel mesh through abdominal wall, and scars) Extremities: no pedal edema, no calf tenderness, normal capillary refill Neurologic/Psychiatric: monitoring manager II-XII nml as tested, alert, normal mood/affect, oriented x 3 Skin: normal color, warm/dry Lymphatic: no adenopathy (neck, axilla or groin) Data Review Radiology Date of Exam:03/06/20 CT CHEST/ABDOMEN/PELVIS W EXAMINATION: CT Chest, Abdomen and Pelvis with intravenous contrast. TECHNIQUE: Multiple contiguous axial images were obtained through the chest, abdomen and pelvis after the uneventful administration of intravenous contrast. All CT scans use one or more of the following dose optimizing techniques: automated exposure control, MA and/or KvP adjustment based on a patient size and exam type, or iterative reconstruction. HISTORY: Weakness COMPARISON: None available. FINDINGS: There is no edema or pneumonia. No pleural effusion. No pneumothorax. No suspicious nodules. There is no axillary or supraclavicular lymphadenopathy. There is no mediastinal lymphadenopathy. Heart size is normal. There are moderate coronary artery calcifications. No pericardial effusion. Aorta is normal in caliber. Liver is severely steatotic. No suspicious liver lesions are seen. There is no biliary ductal dilation. Gallbladder is normal. Pancreas is normal. Spleen is normal. Adrenal glands are normal. Large cyst is seen in the right kidney. There are no suspicious renal lesions. There is no hydronephrosis. Urinary bladder is normal. Visualized bowel is normal in caliber without obstruction or inflammation. There is diverticulosis without diverticulitis. The appendix is normal. No free fluid or air. No abdominal or pelvic lymphadenopathy. There is a aorta bifemoral bypass graft. 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 There are no suspicious osseus lesions. IMPRESSION: 1. Severe hepatic steatosis. 2. 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 Dictated by: Dictated on workstation # [id number] Dict: 03/06/20 1339 Trans: 03/06/20 1408 CV [id number] Interpreted by: DRAGAN WIGGINS MD Electronically signed by: DRAGAN WIGGINS MD 03/06/20 1408 US HEPATIC (LIVER)[id number] PROCEDURE: US Hepatic (Liver). TECHNIQUE: Multiple Real-time grayscale images were obtained over the right upper quadrant in various projections. INDICATION: Elevated liver enzymes. FINDINGS: The liver is enlarged to 22 cm. There is diffuse increased echogenicity throughout the liver, consistent with hepatic steatosis. The portal vein is patent and shows normal direction of flow. The gallbladder appears to contain sludge. There is also wall thickening measuring up to 6 mm with minimal pericholecystic fluid. No definite biliary ductal dilatation is identified. The aorta was not visualized. The pancreas is poorly visualized. The IVC is patent. The right kidney does contain a large cyst in the upper pole measuring approximately 7.5 cm in size. There is no ascites. IMPRESSION: 1. Hepatomegaly and hepatic steatosis. 2. Gallbladder sludge with gallbladder wall thickening up to 6 mm. Acalculus cholecystitis cannot be entirely excluded. A HIDA scan may be useful for further evaluation. 3. Large right renal cyst. Dictated by: Dictated on workstation # [id number] Dict: 03/08/20 1014 Trans: 03/08/20 1542 [id number] Interpreted by: MARILOU ALDANA MD Electronically signed by: MARILOU ALDANA MD 03/08/20 1542 Assessment/Plan Assessment/Plan Assessment/Plan Abdominal pain Cholelithiasis Weight Loss Pt has some non-specific abdominal pain, but I do not think it is related to the sludge in his gallbladder. His symptoms do not sound like cholecystitis at all. He would probably benefit from EGD and colonoscopy; can be done as inpt or outpt. He also has some non-specific liver failure, elevated LFT's. I will get a direct bilirubin, in order to determine indirect as well. [place] medical care. Supervisory-Addendum Brief Verification & Attestation Participated in pt care: history, MDM, physical Personally performed: exam, history, MDM Care discussed with: Medical Student Procedures: n/a Verification and Attestation of Medical Student E/M Service A medical student performed and documented this service. I then reviewed and verified all information documented by the medical student and made modifications to such information, when appropriate. I personally performed a physical exam, medical decision making and then discussed any differences between the notes and made revisions as necessary to create one note. Cruz Lezama , 03/09/20 , 18:27 RACHEL ROWE MED STUDENT Mar 09, 2020 16:40 CRUZ LEZAMA DO Mar 09, 2020 18:27
[2020-03-09 19:12] VITALS: BP 145/91
[2020-03-09 19:19] LABS: BILIRUBIN,DIRECT 1.6 MG/DL (0.0-0.3); BILIRUBIN,INDIRECT 0.5 MG/DL; BILIRUBIN,TOTAL 2.1 MG/DL (0.1-1.0)
[2020-03-09] MEDS: traZODone 50 MG (DESYREL) TAB PO SCH (20:48)
[2020-03-10 00:25] VITALS: BP 165/89
[2020-03-10] MEDS: LACTATED RINGERS 1,000 ML IV SCH ×3 (01:27→18:23)
[2020-03-10 03:30] VITALS: BP 159/85
[2020-03-10] MEDS: VANCOMYCIN 50 MG/ML ORAL SOLN 150 ML PO SCH ×4 (03:36→20:33)
[2020-03-10 05:49] LABS: BASOPHILS % (AUTO) 0 % (0-10); EOSINOPHILS % (AUTO) 0 % (0-10); HEMATOCRIT 28 % (40-54); HEMOGLOBIN 9.2 G/DL (13.3-17.7); LYMPHOCYTES # (AUTO) 0.9 X 10^3 (1.0-4.0); LYMPHOCYTES % (AUTO) 11 % (12-44); MEAN CORPUSCULAR HEMOGLOBIN 34 PG (25-34); MEAN CORPUSCULAR HGB CONC 33 G/DL (32-36); MEAN CORPUSCULAR VOLUME 105 FL (80-99); MEAN PLATELET VOLUME 11.2 FL (7.4-10.4); MONOCYTES # (AUTO) 0.8 X 10^3 (0.0-1.0); MONOCYTES % (AUTO) 9 % (0-12); NEUTROPHILS # (AUTO) 6.8 X 10^3 (1.8-7.8); NEUTROPHILS % (AUTO) 80 % (42-75); PLATELET COUNT 119 10^3/uL (130-400); WHITE BLOOD COUNT 8.6 10^3/uL (4.3-11.0)
[2020-03-10 06:16] LABS: ALANINE AMINOTRANSFERASE 146 U/L (0-55); ALBUMIN 2.8 GM/DL (3.2-4.5); ALKALINE PHOSPHATASE 193 U/L (40-136); BILIRUBIN,TOTAL 2.5 MG/DL (0.1-1.0); BUN/CREATININE RATIO 10; CALCIUM 8.4 MG/DL (8.5-10.1); CARBON DIOXIDE 26 MMOL/L (21-32); CHLORIDE 103 MMOL/L (98-107); CREATININE SERUM 1.14 MG/DL (0.60-1.30); GFR ESTIMATED > 60; GLUCOSE 90 MG/DL (70-105); POTASSIUM 3.3 MMOL/L (3.6-5.0); SODIUM 140 MMOL/L (135-145); TOTAL PROTEIN 6.1 GM/DL (6.4-8.2)
--- NOTE | 2020-03-10 06:34 | Progress Note - Hospitalist ---
Subjective HPI/CC On Admission Date Seen by Provider: Mar 10, 2020 Time Seen by Provider: 10:00 This is a 59-year-old white male who presented to the emergency room with complaints of diarrhea and progressive weakness and inability to walk independently and care for himself. He notes that he's had watery diarrhea for about a month. C. difficile was positive today. He has been laid off work from his job at a [employer] and has not in visiting the long term are childcare facility nor has he been on a recent antibiotic. He does have a son who works as a Cook. Subjective/Events-last exam Pt is doing a lot better Still feels badly but he always feel badly Pt is very chronically ill Dr. Oscar does not intent to perform a choly today Liver enzymes improved Replacing potassium Overall very debilitated from alcoholism Review of Systems General: Fatigue, Malaise Gastrointestinal: Diarrhea Neurological: Weakness Objective Exam Vital Signs Vital Signs Date Time Temp Pulse Resp B/P (MAP) Pulse Ox O2 Delivery O2 Flow Rate FiO2 03/10/20 19:21 36.6 64 16 160/80 (106) 100 Room Air Capillary Refill : Less Than 3 Seconds General Appearance: No Apparent Distress, WD/WN, Chronically ill, Thin HEENT: PERRL/EOMI, TMs Normal, Normal ENT Inspection, Pharynx Normal, Moist Mucous Membranes Neck: Full Range of Motion, Normal Inspection, Non Tender, Supple, Carotid Bruit Respiratory: Chest Non Tender, Lungs Clear, Normal Breath Sounds, No Accessory Muscle Use, No Respiratory Distress Cardiovascular: Regular Rate, Rhythm, No Edema, No Gallop, No JVD, No Murmur, Normal Peripheral Pulses Gastrointestinal: Normal Bowel Sounds, No Organomegaly, No Pulsatile Mass, Non Tender, Soft Back: Normal Inspection, No CVA Tenderness, No Vertebral Tenderness Extremity: Normal Capillary Refill, Normal Inspection, Normal Range of Motion, Non Tender, No Calf Tenderness, No Pedal Edema Neurologic/Psychiatric: Alert, Oriented x3, No Motor/Sensory Deficits, Normal Mood/Affect Skin: Normal Color, Warm/Dry Lymphatic: No Adenopathy Results/Procedures Lab Laboratory Tests 03/10/20 04:52 Patient resulted labs reviewed. Imaging: Reviewed Imaging Report Assessment/Plan Assessment and Plan Assess & Plan/Chief Complaint Assessment: C.Diff colitis Severe weight loss 120 pounds in past six months Chronic pain Acute alcoholic hepatitis Plan: Supportive care Vancomycin po IV fluids 03/09/20: Alcohol withdrawal protocol Appreciate Dr. Oscar to assess gallbladder thickening Treat c diff with Vancomycin po Monitor liver function Monitor hemoglobin of 9.0 03/10/20: Monitor hemoglobin Supplement potassium Continue C Diff treatment Patient appears to be very chronically ill at high risk for decompensation Diagnosis/Problems Diagnosis/Problems (1) C. difficile colitis (2) Transaminitis Status: Acute (3) Generalized weakness Status: Acute (4) Elevated bilirubin Status: Acute (5) Diarrhea Status: Acute (6) Dehydration Status: Acute Clinical Quality Measures DVT/VTE Risk/Contraindication: Risk Factor Score Per Nursin RFS Level Per Nursing on Admit: 2=Moderate COLEMAN PINTO DO Mar 10, 2020 06:34
[2020-03-10] MEDS: POTASSIUM CL 10MEQ/50ML IVPB 50 ML IV SCH ×4 (06:48→19:34)
--- NOTE | 2020-03-10 07:57 | Progress Note - Surgery ---
RACHEL ROWE MED STUDENT 03/10/20 0757: Subjective Date Seen by a Provider: Mar 10, 2020 Time Seen by a Provider: 07:42 Subjective/Events-last exam Patient states he is is no current discomfort, he reports having urinated 4-5 times and defecated 3-4 times over the night. He reports no abdominal pain but states the lower abdominal pain/pressure does occasionally occur before needs to use the restroom. He states he has no other complaints at this time. He has been ambulating occasionally and has had no change in symptoms that he is aware of, denies CP, tachycardia, SOB, nausea, vomiting, diarrhea. He notes his mild expiratory wheeze is normal in the morning before he coughs up phlegm from the night (chronically). Objective Exam Vital Signs Date Time Temp Pulse Resp B/P (MAP) Pulse Ox O2 Delivery O2 Flow Rate FiO2 03/10/20 03:30 37.0 72 16 159/85 (109) 94 Room Air 03/10/20 00:25 36.6 66 18 165/89 (114) 93 Room Air 03/09/20 20:50 Room Air 03/09/20 19:12 36.8 59 16 145/91 (109) 98 Room Air 03/09/20 15:23 36.5 75 18 135/88 (104) 100 Room Air 03/09/20 12:00 36.9 66 20 151/80 (103) 97 Room Air 03/09/20 08:00 97 Room Air 03/09/20 08:00 36.6 76 20 150/84 (106) 97 Room Air I & O 03/10/20 07:00 Intake Total 3440 ml Output Total 250 ml Balance 3190 ml Capillary Refill : Less Than 3 Seconds General Appearance: No Apparent Distress, Thin HEENT: Other (Poor dentition) Respiratory: Chest Non Tender, No Accessory Muscle Use, No Respiratory Distress, Wheezing (mild, expiratory, states is normal in the morning before coughing up phlegm) Cardiovascular: Regular Rate, Rhythm, No Edema Gastrointestinal: normal bowel sounds, non tender, soft, no organomegaly, other (can feel mesh through abdominal wall, and scars) Extremity: No Pedal Edema; No Calf Tenderness Neurologic/Psychiatric: Alert, Normal Mood/Affect; No Facial Droop Results Lab Laboratory Tests 03/09/20 18:50: Total Bilirubin 2.1H, Direct Bilirubin 1.6H, Indirect Bilirubin 0.5 03/10/20 04:52: Total Bilirubin 2.5H, White Blood Count 8.6, Red Blood Count 2.69L, Hemoglobin 9.2L, Hematocrit 28L, Mean Corpuscular Volume 105H, Mean Corpuscular Hemoglobin 34, Mean Corpuscular Hemoglobin Concent 33, Red Cell Distribution Width 15.0H, Platelet Count 119L, Mean Platelet Volume 11.2H, Neutrophils (%) (Auto) 80H, Lymphocytes (%) (Auto) 11L, Monocytes (%) (Auto) 9, Eosinophils (%) (Auto) 0, Basophils (%) (Auto) 0, Neutrophils # (Auto) 6.8, Lymphocytes # (Auto) 0.9L, Monocytes # (Auto) 0.8, Eosinophils # (Auto) 0.0, Basophils # (Auto) 0.0, Sodium Level 140, Potassium Level 3.3L, Chloride Level 103, Carbon Dioxide Level 26, Anion Gap 11, Blood Urea Nitrogen 11, Creatinine 1.14, Estimat Glomerular Filtration Rate > 60, BUN/Creatinine Ratio 10, Glucose Level 90, Calcium Level 8.4L, Corrected Calcium 9.4, Aspartate Amino Transf (AST/SGOT) 210H, Alanine Aminotransferase (ALT/SGPT) 146H, Alkaline Phosphatase 193H, Total Protein 6.1L, Albumin 2.8L Microbiology 03/06/20 Stool Culture - Final, Complete See Comments Assessment/Plan Assessment/Plan Assessment/Plan Abdominal pain Cholelithiasis Weight Loss Clinical Quality Measures DVT/VTE Risk/Contraindication: Risk Factor Score Per Nursin RFS Level Per Nursing on Admit: 2=Moderate ANÍBAL OSCAR DO 03/10/20 1624: Subjective Time Seen by a Provider: 14:28 Subjective/Events-last exam Pt seen and examined, states he feels weak. He is also concerned that lately when he has BM; "I see something bulge out, not a hemorrhoid". Review of Systems General: Fatigue, Malaise Pulmonary: No Dyspnea, No Cough Cardiovascular: No: Chest Pain Gastrointestinal: Nausea, Abdominal Pain Objective Exam General Appearance: No Apparent Distress, Chronically ill, Thin HEENT: PERRL/EOMI Respiratory: No Accessory Muscle Use, No Respiratory Distress, Wheezing (mild, expiratory, states is normal in the morning before coughing up phlegm) Cardiovascular: Regular Rate, Rhythm, No Murmur Gastrointestinal: non tender, soft, no organomegaly Skin: Pallor Assessment/Plan Assessment/Plan Assessment/Plan Anemia Weight loss Abdominal pain C. Diff Colitis Plan to do an EGD and colonoscopy to work-up anemia and weight loss. Discussed risks and complications of procedures with pt; not limited to pain, bleeding, infection, intestinal or esophageal perforation and need for further procedure. Will prep pt, get consent and make NPO. All questions answered to his satisfaction. If all of these are negative, then it is possible he may need a cholecystectomy. Supervisory-Addendum Brief Verification & Attestation Participated in pt care: history, MDM, physical Personally performed: exam, history, MDM Care discussed with: Medical Student Procedures: n/a Verification and Attestation of Medical Student E/M Service A medical student performed and documented this service. I then reviewed and verified all information documented by the medical student and made modifications to such information, when appropriate. I personally performed a physical exam, medical decision making and then discussed any differences between the notes and made revisions as necessary to create one note. Aníbal Oscar , 03/10/20 , 16:24 RACHEL ROWE MED STUDENT Mar 10, 2020 07:57 ANÍBAL OSCAR DO Mar 10, 2020 16:24
[2020-03-10 08:00] VITALS: BP 130/80
[2020-03-10] MEDS: meTOproloL SUCCINATE 50 MG (TOPROL XL) TAB PO SCH (08:24)
[2020-03-10] MEDS: FAMOTIDINE 20MG/2ML IV (PEPCID) IV SCH (08:24)
[2020-03-10] MEDS: CLOPIDOGREL 75 MG (PLAVIX) TABLET PO SCH (08:24)
[2020-03-10] MEDS: LOSARTAN 25 MG (COZAAR) TAB PO SCH ×2 (08:24→20:34)
[2020-03-10] MEDS: CHOLESTYRAMINE 4 GM (QUESTRAN LITE, PREVALITE) PKT PO SCH ×2 (08:24→20:34)
[2020-03-10] MEDS: amLODIPine 5 MG (NORVASC) TAB PO SCH (08:24)
[2020-03-10] MEDS: PANTOPRAZOLE 40 MG (PROTONIX) TAB PO SCH (08:24)
[2020-03-10 12:00] VITALS: BP 144/87
--- NOTE | 2020-03-10 12:00 | NUR ---
PT UNABLE TO TOLERATE LAST TWO BAGS OF IV POTASSIUM. DR PINTO NOTIFIED AND GAVE ORDERS TO HOLD LAST TWO IV POTASSIUM BAGS AND TO BEGIN K-DUR 10 MEQ TID.
--- NOTE | 2020-03-10 13:26 | Occupational Ther Daily Note ---
OT Current Status-Daily Note Subjective Pt lying in bed sleeping. Pt woke to name and stated that he was worn out today and that he did not have energy for much. No c/o pain at this time. Pain Location: No Pain Reported Appearance Pt appeared worn out. Mental Status/Objective Patient Orientation: Person, Place, Time, Situation Attachments: IV ADL-Treatment Pt able to ambulate with IV pole to bathroom independently, completed toileting independently. Therapy Code Descriptions/Definitions Functional Granite Measure: 0=Not Assessed/NA 4=Minimal Assistance 1=Total Assistance 5=Supervision or Setup 2=Maximal Assistance 6=Modified Granite 3=Moderate Assistance 7=Complete IndependenceSCALE: Activities may be completed with or without assistive devices. 3-Jiafuiqlqi-rbsmvkd completes the activity by him/herself with no assistance from a helper. 5-Set-up or Clean-up Assistance-helper sets up or cleans up; patient completes activity. [place] assists only prior to or following the activity. 4-Supervision or Touching Assistance-helper provides verbal cues and/or touching/steadying and/or contact guard assistance as patient completes activity. Assistance may be provided throughout the activity or intermittently. 3-Partial/Moderate Assistance-helper does LESS THAN HALF the effort. [place] lifts, holds or supports trunk or limbs, but provides less than half the effort. 2-Substantial/Maximal Assistance-helper does MORE THAN HALF the effort. [place] lifts or holds trunk or limbs and provides more than half the effort. 8-Ixgwmufcl-dypgwm does ALL the effort. Patient does none of the effort to complete the activity. Or, the assistance of 2 or more helpers is required for the patient to complete the activity. If activity was not attempted, code reason: 7-Patient Refused. 9-Not Applicable-not attempted and the patient did not perform the activity before the current illness, exacerbation or injury. 10-Not Attempted due to Environmental Limitations-(lack of equipment, weather restraints, etc.). 88-Not Attempted due to Medical Conditions or Safety Concerns. Toileting Hygiene (QC): 6 Toilet Transfer (QC): 6 Other Treatment Pt declined to complete bathing, dressing or oral care due to fatigue. Medium resistance theraband exercises completed to increase strength and activity tolerance for daily functional tasks, 1 set 15 reps. Skilled instruction given for technique. Pt able to recall 2 of 6 exercises. After therapy, pt lying in bed with call light/phone in reach. All needs met in room. Education OT Patient Education: Exercise program Response to Teaching: Verbalize Understanding OT Form Drafter Goals Mcfp Goals Time Frame: Mar 15, 2020 Eating (QC): 6 Oral Hygiene (QC): 6 Toileting Hygiene (QC): 6 Shower/Bathe Self (QC): 6 Upper Body Dressing (QC): 6 Lower Body Dressing (QC): 6 On/Off Footwear (QC): 6 Additional Goals: 1-Demonstrate ADL Tasks, 2-Verbalize Understanding, 3- ImproveStrength/Jimena 1=Demonstrate adherence to instructed precautions during ADL tasks. 2=Patient will verbalize/demonstrate understanding of assistive devices/modifications for ADL. 3=Patient will improve strength/tolerance for activity to enable patient to perform ADL's. OT Education/Plan Problem List/Assessment Assessment: Decreased Activ Tolerance, Decreased UE Strength Pt would benefit from skilled OT to increase his independence in basic self care to allow him to safely return home. Discharge Recommendations Plan/Recommendations: Continue POC Treatment Plan/Plan of Care Patient would benefit from OT for education, treatment and training to promote independence in ADL's, mobility, safety and/or upper extremity function for ADL's. Plan of Care: ADL Retraining, Functional Mobility, UE Funct Exercise/Act, UE Neuromus Re-Ed/Coord Treatment Duration: Mar 15, 2020 Frequency: 5 times per week Estimated Hrs Per Day: .25 hour per day Agreement: Yes Rehab Potential: Fair Time/GCodes Start Time: 13:20 Stop Time: 13:30 Total Time Billed (hr/min): 10 Billed Treatment Time 1 visit -EX 1 (10 mins) GRACIA KEATING Mar 10, 2020 13:26
[2020-03-10] MEDS: KCL 10 MEQ TAB (MICRO K) PO SCH ×2 (13:43→18:02)
--- NOTE | 2020-03-10 15:03 | NUR ---
CM/SS follow up. The patient reports that he is feeling "puny" today due using the restroom multiple times during the night. He verbalized that he is getting a scope done tomorrow. CM/SS discussed further with patient services and resources to help with addiction treatment. He verbalized understanding and reports that he is still not interested in treatment at this time. The patient was however interested in AA. CM/SS informed him that they have online meetings right now. He verbalized understanding. He states that his son also drinks and he has offered to quit drinking with the patient. His son cleared the house of all alcoholic beverages. The patient reports that he is confident that he will not need any additional resources for treatment at this time.
[2020-03-10 15:19] VITALS: BP 146/86
[2020-03-10] MEDS ORDERED: BISACODYL 5 MG (DULCOLAX) TABLET PO SCH ×2 (17:00→20:00)
[2020-03-10] MEDS ORDERED: polyethylene glycoL Bowel Prep(MIRALAX) 238 GM PO SCH (18:00)
[2020-03-10 19:21] VITALS: BP 160/80
[2020-03-10] MEDS: traZODone 50 MG (DESYREL) TAB PO SCH (20:33)
[2020-03-11] VITALS (13 sets, daily range): BP systolic 117–168; BP diastolic 60–85
[2020-03-11] MEDS: LACTATED RINGERS 1,000 ML IV SCH ×3 (02:43→17:00)
[2020-03-11] MEDS: VANCOMYCIN 50 MG/ML ORAL SOLN 150 ML PO SCH ×5 (04:28→20:01)
[2020-03-11 05:40] LABS: BASOPHILS % (AUTO) 0 % (0-10); EOSINOPHILS # (AUTO) 0.1 10^3/uL (0.0-0.3); EOSINOPHILS % (AUTO) 1 % (0-10); HEMATOCRIT 27 % (40-54); HEMOGLOBIN 8.9 G/DL (13.3-17.7); LYMPHOCYTES # (AUTO) 0.8 X 10^3 (1.0-4.0); LYMPHOCYTES % (AUTO) 9 % (12-44); MEAN CORPUSCULAR HEMOGLOBIN 35 PG (25-34); MEAN CORPUSCULAR HGB CONC 33 G/DL (32-36); MEAN CORPUSCULAR VOLUME 104 FL (80-99); MEAN PLATELET VOLUME 10.4 FL (7.4-10.4); MONOCYTES % (AUTO) 10 % (0-12); NEUTROPHILS # (AUTO) 7.5 X 10^3 (1.8-7.8); NEUTROPHILS % (AUTO) 80 % (42-75); PLATELET COUNT 123 10^3/uL (130-400); RED CELL DISTRIBUTION WIDTH 14.9 % (10.0-14.5); WHITE BLOOD COUNT 9.4 10^3/uL (4.3-11.0)
[2020-03-11 06:05] LABS: ALANINE AMINOTRANSFERASE 118 U/L (0-55); ALBUMIN 2.9 GM/DL (3.2-4.5); ALKALINE PHOSPHATASE 190 U/L (40-136); BILIRUBIN,TOTAL 2.6 MG/DL (0.1-1.0); BUN/CREATININE RATIO 8; CALCIUM 8.6 MG/DL (8.5-10.1); CARBON DIOXIDE 27 MMOL/L (21-32); CHLORIDE 103 MMOL/L (98-107); CREATININE SERUM 1.07 MG/DL (0.60-1.30); GFR ESTIMATED > 60; GLUCOSE 87 MG/DL (70-105); POTASSIUM 3.7 MMOL/L (3.6-5.0); SODIUM 140 MMOL/L (135-145); TOTAL PROTEIN 6.2 GM/DL (6.4-8.2)
--- NOTE | 2020-03-11 07:52 | Progress Note - Surgery ---
RACHEL ROWE MED STUDENT 03/11/20 0752: Subjective Date Seen by a Provider: Mar 11, 2020 Time Seen by a Provider: 07:31 Subjective/Events-last exam Patient states he has been on the toilet all night, noting he feels the prep is working. Stool in the bedside commode was brown, patient denies abdominal pain, nausea, vomiting, chest pain, tachycardia, unusual SOB, wheeze or unusual cough (patient states he wheezes in the morning until he coughs and clears his throat). Objective Exam Vital Signs Date Time Temp Pulse Resp B/P (MAP) Pulse Ox O2 Delivery O2 Flow Rate FiO2 03/11/20 04:00 36.9 78 24 144/76 (98) 95 Room Air 03/11/20 00:16 36.6 67 22 151/83 (105) 98 Room Air 03/10/20 20:30 100 Room Air 03/10/20 19:21 36.6 64 16 160/80 (106) 100 Room Air 03/10/20 15:19 36.6 60 18 146/86 (106) 98 Room Air 03/10/20 12:00 36.4 60 20 144/87 (106) 98 Room Air 03/10/20 08:00 98 Room Air 03/10/20 08:00 36.6 94 20 130/80 (97) 94 Room Air I & O 03/11/20 07:00 Intake Total 2810 ml Output Total 50 ml Balance 2760 ml Capillary Refill : Less Than 3 Seconds General Appearance: No Apparent Distress, Chronically ill, Thin Neck: Normal Inspection, Non Tender Respiratory: Chest Non Tender, Lungs Clear, Normal Breath Sounds, No Accessory Muscle Use, No Respiratory Distress Cardiovascular: Regular Rate, Rhythm, No Edema; No Tachycardia Peripheral Pulses: 2+ Carotid (R), 2+ Carotid (L) Gastrointestinal: non tender, no organomegaly; No tenderness Extremity: Normal Inspection, Non Tender, No Pedal Edema Neurologic/Psychiatric: Alert, Normal Mood/Affect Skin: Normal Color, Other (reports feet were extremely "purpkle" this morning and he could "see his veins in his leg" after taking a shower.) Lymphatic: No Adenopathy Results Lab Laboratory Tests 03/10/20 18:00: 03/11/20 05:25: White Blood Count 9.4, Red Blood Count 2.57L, Hemoglobin 8.9L, Hematocrit 27L, Mean Corpuscular Volume 104H, Mean Corpuscular Hemoglobin 35H, Mean Corpuscular Hemoglobin Concent 33, Red Cell Distribution Width 14.9H, Platelet Count 123L, Mean Platelet Volume 10.4, Neutrophils (%) (Auto) 80H, Lymphocytes (%) (Auto) 9L , Monocytes (%) (Auto) 10, Eosinophils (%) (Auto) 1, Basophils (%) (Auto) 0, Neutrophils # (Auto) 7.5, Lymphocytes # (Auto) 0.8L, Monocytes # (Auto) 1.0, Eosinophils # (Auto) 0.1, Basophils # (Auto) 0.0, Sodium Level 140, Potassium Level 3.7, Chloride Level 103, Carbon Dioxide Level 27, Anion Gap 10, Blood Urea Nitrogen 9, Creatinine 1.07, Estimat Glomerular Filtration Rate > 60, BUN/Creatinine Ratio 8, Glucose Level 87, Calcium Level 8.6, Corrected Calcium 9.5, Total Bilirubin 2.6H, Aspartate Amino Transf (AST/SGOT) 130H, Alanine Aminotransferase (ALT/SGPT) 118H, Alkaline Phosphatase 190H, Total Protein 6.2L, Albumin 2.9L Microbiology 03/06/20 Stool Culture - Final, Complete See Comments Assessment/Plan Assessment/Plan Assessment/Plan Anemia Weight loss Abdominal pain C. Diff Colitis Plan to do an EGD and colonoscopy to work-up anemia and weight loss. Discussed risks and complications of procedures with pt; not limited to pain, bleeding, infection, intestinal or esophageal perforation and need for further procedure. Will prep pt, get consent and make NPO. All questions answered to his satisfaction. If all of these are negative, then it is possible he may need a cholecystectomy. Clinical Quality Measures DVT/VTE Risk/Contraindication: Risk Factor Score Per Nursin RFS Level Per Nursing on Admit: 2=Moderate ANÍBAL OSCAR DO 03/11/20 1746: Subjective Time Seen by a Provider: 16:51 Subjective/Events-last exam Pt seen and examined, states he doesn't even remember the procedures. Denies pain but still feels a little weak. Review of Systems General: Fatigue Pulmonary: No Dyspnea, No Cough Cardiovascular: No: Chest Pain, Palpitations Gastrointestinal: No: Nausea, Vomiting Objective Exam General Appearance: No Apparent Distress, Chronically ill Respiratory: Lungs Clear, Normal Breath Sounds, No Accessory Muscle Use, No Respiratory Distress Cardiovascular: Regular Rate, Rhythm, No Murmur Gastrointestinal: non tender, soft, no organomegaly Assessment/Plan Assessment/Plan Assessment/Plan ??Jenni of the Esophagus Gastritis Colon polyps Diverticula Internal hemorrhoids Pt has been having trouble with dysphagia and the findings in the esophagus may account for this; no obstruction seen. C. Diff appears to have been treated; no signs of blood loss, so unsure why he is anemic. Will await pathology. Supervisory-Addendum Brief Verification & Attestation Participated in pt care: history, MDM, physical Personally performed: exam, history, MDM Care discussed with: Medical Student Procedures: n/a Verification and Attestation of Medical Student E/M Service A medical student performed and documented this service. I then reviewed and verified all information documented by the medical student and made modificati ons to such information, when appropriate. I personally performed a physical exam, medical decision making and then discussed any differences between the notes and made revisions as necessary to create one note. Aníbal Oscar , 03/11/20 , 17:46 RACHEL ROWE MED STUDENT Mar 11, 2020 07:52 ANÍBAL SOCAR DO Mar 11, 2020 17:46
[2020-03-11] MEDS ORDERED: MAGNESIUM CITRATE 300 ML BTL PO NR (08:00)
[2020-03-11] MEDS: KCL 10 MEQ TAB (MICRO K) PO SCH ×3 (08:00→18:05)
[2020-03-11] MEDS: CHOLESTYRAMINE 4 GM (QUESTRAN LITE, PREVALITE) PKT PO SCH ×2 (09:00→21:12)
[2020-03-11] MEDS: LOSARTAN 25 MG (COZAAR) TAB PO SCH ×2 (09:00→20:01)
--- NOTE | 2020-03-11 10:08 | Progress Note - Hospitalist ---
Subjective HPI/CC On Admission Date Seen by Provider: Mar 11, 2020 Time Seen by Provider: 10:00 This is a 59-year-old white male who presented to the emergency room with complaints of diarrhea and progressive weakness and inability to walk independently and care for himself. He notes that he's had watery diarrhea for about a month. C. difficile was positive today. He has been laid off work from his job at a [employer] and has not in visiting the custodial are childcare facility nor has he been on a recent antibiotic. He does have a son who works as a Cook. Subjective/Events-last exam Pt doing pretty well EGD and colonoscopy scheduled for today by Dr. Oscar Likely will be able to go home tomorrow Vancomycin by mouth will be continued until the regimen is completed Weight loss is prompting the EGD and colonoscopy of 120lb weight loss in the last six months Review of Systems General: Fatigue, Malaise Gastrointestinal: Diarrhea Neurological: Weakness Objective Exam Vital Signs Vital Signs Date Time Temp Pulse Resp B/P (MAP) Pulse Ox O2 Delivery O2 Flow Rate FiO2 03/11/20 20:01 Room Air 03/11/20 19:09 36.7 61 16 146/77 (100) 98 03/11/20 13:05 5 Capillary Refill : Less Than 3 Seconds General Appearance: No Apparent Distress, WD/WN HEENT: PERRL/EOMI, TMs Normal, Normal ENT Inspection, Pharynx Normal, Moist Mucous Membranes Neck: Full Range of Motion, Normal Inspection, Non Tender, Supple, Carotid Bruit Respiratory: Chest Non Tender, Lungs Clear, Normal Breath Sounds, No Accessory Muscle Use, No Respiratory Distress Cardiovascular: Regular Rate, Rhythm, No Edema, No Gallop, No JVD, No Murmur, Normal Peripheral Pulses Gastrointestinal: Normal Bowel Sounds, No Organomegaly, No Pulsatile Mass, Non Tender, Soft Back: Normal Inspection, No CVA Tenderness, No Vertebral Tenderness Extremity: Normal Capillary Refill, Normal Inspection, Normal Range of Motion, Non Tender, No Calf Tenderness, No Pedal Edema Neurologic/Psychiatric: Alert, Oriented x3, No Motor/Sensory Deficits, Normal Mood/Affect Skin: Normal Color, Warm/Dry Lymphatic: No Adenopathy Results/Procedures Lab Laboratory Tests 03/11/20 05:25 Patient resulted labs reviewed. Imaging: Reviewed Imaging Report Assessment/Plan Assessment and Plan Assess & Plan/Chief Complaint Assessment: C.Diff colitis Severe weight loss 120 pounds in past six months Chronic pain Acute alcoholic hepatitis Plan: Supportive care Vancomycin po IV fluids 03/09/20: Alcohol withdrawal protocol Appreciate Dr. Oscar to assess gallbladder thickening Treat c diff with Vancomycin po Monitor liver function Monitor hemoglobin of 9.0 03/10/20: Monitor hemoglobin Supplement potassium Continue C Diff treatment Patient appears to be very chronically ill at high risk for decompensation 03/11/20: EGD/colonoscopy today by Dr. Oscar Continue Vancomycin for c. Diff colitis Discharge home Sunday Diagnosis/Problems Diagnosis/Problems (1) C. difficile colitis (2) Transaminitis Status: Acute (3) Generalized weakness Status: Acute (4) Elevated bilirubin Status: Acute (5) Diarrhea Status: Acute (6) Dehydration Status: Acute Clinical Quality Measures DVT/VTE Risk/Contraindication: Risk Factor Score Per Nursin RFS Level Per Nursing on Admit: 2=Moderate COLEMAN PINTO DO Mar 11, 2020 10:07
--- NOTE | 2020-03-11 11:20 | Occupational Ther Daily Note ---
OT Current Status-Daily Note Subjective Pt seen in room, up in bed, agreeable to OT. No pain mentioned. Appearance Alert, cooperative Mental Status/Objective Attachments: IV ADL-Treatment Pt reported that he has been taking himself to the bathroom and has a BSC available near his bed. He also was pleased with his improved walking. Pt provided with green foam hand pre press operator and shown two different exercises to work on grasp and intrinsic muscle strength (for coordination). He was able to complete 20 reps each one. Also provided with red (medium resistance) theraputty and he was able to do grasp and pinch exercises, for strengthening and coordination. Pt encouraged to work with these on his own and to take them home with him. He reported he's been doing theraband exercises in his room, as well. Pt left up in bed, all needs met. Therapy Code Descriptions/Definitions Functional [place] Measure: 0=Not Assessed/NA 4=Minimal Assistance 1=Total Assistance 5=Supervision or Setup 2=Maximal Assistance 6=Modified [place] 3=Moderate Assistance 7=Complete IndependenceSCALE: Activities may be completed with or without assistive devices. 1-Wkdkqacnxu-sihzdut completes the activity by him/herself with no assistance from a helper. 5-Set-up or Clean-up Assistance-helper sets up or cleans up; patient completes activity. [place] assists only prior to or following the activity. 4-Supervision or Touching Assistance-helper provides verbal cues and/or touching/steadying and/or contact guard assistance as patient completes activity. Assistance may be provided throughout the activity or intermittently. 3-Partial/Moderate Assistance-helper does LESS THAN HALF the effort. [place] lifts, holds or supports trunk or limbs, but provides less than half the effort. 2-Substantial/Maximal Assistance-helper does MORE THAN HALF the effort. [place] lifts or holds trunk or limbs and provides more than half the effort. 7-Tgmvmkzwa-osjjki does ALL the effort. Patient does none of the effort to complete the activity. Or, the assistance of 2 or more helpers is required for the patient to complete the activity. If activity was not attempted, code reason: 7-Patient Refused. 9-Not Applicable-not attempted and the patient did not perform the activity before the current illness, exacerbation or injury. 10-Not Attempted due to Environmental Limitations-(lack of equipment, weather restraints, etc.). 88-Not Attempted due to Medical Conditions or Safety Concerns. Education OT Patient Education: Progress toward Goal/Update tx plan, Purpose of tx/functional activities Teaching Recipient: Patient Teaching Methods: Demonstration, Discussion Response to Teaching: Return Demonstration OT Channel Opener Outsoles Goals Long-Term Goals Time Frame: Mar 15, 2020 Eating (QC): 6 Oral Hygiene (QC): 6 Toileting Hygiene (QC): 6 Shower/Bathe Self (QC): 6 Upper Body Dressing (QC): 6 Lower Body Dressing (QC): 6 On/Off Footwear (QC): 6 Additional Goals: 1-Demonstrate ADL Tasks, 2-Verbalize Understanding, 3- ImproveStrength/Jimena 1=Demonstrate adherence to instructed precautions during ADL tasks. 2=Patient will verbalize/demonstrate understanding of assistive devices/modifications for ADL. 3=Patient will improve strength/tolerance for activity to enable patient to perform ADL's. OT Education/Plan Problem List/Assessment Pt would benefit from skilled OT to increase his independence in basic self care to allow him to safely return home. Discharge Recommendations Plan/Recommendations: Continue POC Treatment Plan/Plan of Care Patient would benefit from OT for education, treatment and training to promote independence in ADL's, mobility, safety and/or upper extremity function for ADL's. Plan of Care: ADL Retraining, Functional Mobility, UE Funct Exercise/Act, UE Neuromus Re-Ed/Coord Treatment Duration: Mar 15, 2020 Frequency: 5 times per week Estimated Hrs Per Day: .25 hour per day Agreement: Yes Rehab Potential: Fair Time/GCodes Start Time: 10:40 Stop Time: 10:56 Total Time Billed (hr/min): 16 Billed Treatment Time visit, 16 minutes exercise GEOVANY CROWLEY OT Mar 11, 2020 11:20
[2020-03-11] MEDS ORDERED: MIDAZOLAM 2 MG/2 ML (VERSED) VIAL ONE (12:04)
[2020-03-11] MEDS ORDERED: PROPOFOL INJECTION 50 ML IV ONE (12:04)
--- NOTE | 2020-03-11 12:15 | NUR ---
TAKEN DOWN FOR EGD AND COLONOSCOPY
[2020-03-11] MEDS ORDERED: LACTATED RINGERS 1,000 ML IV ONE ×2 (12:21→13:30)
[2020-03-11] MEDS: FAMOTIDINE 20 MG (PEPCID) TABLET PO SCH (14:44)
[2020-03-11] MEDS: meTOproloL SUCCINATE 50 MG (TOPROL XL) TAB PO SCH (14:44)
[2020-03-11] MEDS: PANTOPRAZOLE 40 MG (PROTONIX) TAB PO SCH (14:44)
[2020-03-11] MEDS: amLODIPine 5 MG (NORVASC) TAB PO SCH (14:44)
[2020-03-11] MEDS: CLOPIDOGREL 75 MG (PLAVIX) TABLET PO SCH (14:53)
--- NOTE | 2020-03-11 16:10 | NUR ---
Pastoral care visit.
--- NOTE | 2020-03-11 17:39 | Progress Note-Post Operative ---
Post-Operative Progess Note Surgeon (s)/District Extension Service Agent (s) Surgeon CRUZ LEZAMA DO District Extension Service Agent: ISSAC Lemon Pre-Operative Diagnosis Anemia, Weight loss, Dysphagia, C. Diff Post-Operative Diagnosis ??Jenni of Esophagus Gastritis Hiatal hernia Colon polyps Diverticula Internal hemorrhoids Procedure & Operative Findings Date of Procedure 03/11/20 Procedure Performed/Findings EGD with biopsy and brushing Colon with snare Anesthesia Type IV sedation by LINE ANALYST Estimated Blood Loss Estimated blood loss (mL): scant Specimens/Packing Specimens Removed Antral bx GE jxn bx Esophageal brushings Asc colon polyp Desc colon polyp CRUZ LEZAMA DO Mar 11, 2020 17:39
[2020-03-11] MEDS: traZODone 50 MG (DESYREL) TAB PO SCH (20:01)
--- NOTE | 2020-03-11 21:18 | NUR ---
2034-pt requesting to have iv fluids turned down so that he can rest tonight instead of being up urinating frequently 2036-this rn contacted dr. gibbs about pt request order received to [facility] pt & dc LR
[2020-03-12] VITALS (12 sets, daily range): BP systolic 137–168; BP diastolic 63–96
--- NOTE | 2020-03-12 00:33 | NUR ---
Patient stated vomited x1 with abdominal cramping, vomiting/emesis not witnessed by staff. PRN reglan given at 0033.
--- NOTE | 2020-03-12 01:29 | NUR ---
0038 Patient reassessed after prn Reglan, he stated he was feeling better [id number] Patient resting quietly in bed, no signs of distress noted
[2020-03-12] MEDS: VANCOMYCIN 50 MG/ML ORAL SOLN 150 ML PO SCH ×2 (04:08→08:58)
--- NOTE | 2020-03-12 04:42 | OPERATIVE REPORT ---
DATE OF SERVICE: 03/11/2020 PREOPERATIVE DIAGNOSES: Anemia, weight loss, dysphagia and C. diff. POSTOPERATIVE DIAGNOSES: Questionable Jenni of the esophagus, gastritis, hiatal hernia, colon polyps, diverticula, internal hemorrhoids. PROCEDURES: 1. EGD with biopsy and brushings. 2. Colonoscopy with snare polypectomy. SURGEON: Aníbal Oscar DO DIVIDER OPERATOR: Arie Lopez MS3. ANESTHESIA: IV sedation by the [facility] SPECIALIST. SPECIMEN: Biopsy from the antrum, biopsy from the GE junction as well as brushing of the esophagus and then ascending colon polyp and descending colon polyp. BLOOD LOSS: Scant. FLUIDS: Per anesthesia. POSTOPERATIVE CONDITION: Stable. INDICATION FOR PROCEDURE: The patient is a 59-year-old male who states he has lost almost 100 pounds over the past 8 months, has not been able to eat, has had poor appetite. In the hospital, found to have C. diff infection, was also anemic and the patient complained of dysphagia and he needed a workup. FINDINGS: The patient had what looked like Jenni of the esophagus. He had some mild gastritis and a small hiatal hernia. He also had polyps, one in the ascending colon, one in descending colon and he had some diverticula and some internal hemorrhoids. PROCEDURE NOTE: After informed consent was obtained, the patient was brought to the endoscopy suite, placed in the bed in left lateral decubitus position. He was administered IV sedation by the [facility] SPECIALIST who then monitored his vitals the entire time, heart rate, blood pressure and pulse ox. We started with the EGD, placing scope down the mouth through the esophagus and on the way down, noted what looked like Jenni pushed through here into the stomach and then towards the antrum, which looked like there is some mild gastritis, pushed into the duodenum. Duodenum looked fine. Pulled back and did a biopsy of the antrum, then retroflexed the scope, body of stomach looked okay, saw a small hiatal hernia, took a picture and then pulled back into the GE junction, did a biopsy, then pushed the scope into the stomach and suctioned out all the air and then pulled the scope up into the esophagus what looked like there was some Jenni. Brushings were done and this was sent for yeast as well as cytology as possible. At this point, then pulled the scope up the esophagus and out the mouth. Switched camera, switched gloves, went down below, started the colonoscopy. Pushed all the way into about [address] in, noted diverticula, took pictures, able to get all the way to cecum, took a picture of appendiceal orifice, noted the ileocecal valve and then slowly withdrew the scope, insufflating to look the circumferential abad, saw a large lipoma in the ascending colon and then saw small polyp, took a picture of this polyp and did a snare polypectomy, continued up to the hepatic flexure, then down the transverse colon, the splenic flexure, into the descending colon and in descending colon, saw another polyp, did another snare polypectomy and then continued down through here to the sigmoid and into the rectum, retroflexed in the rectal vault, saw some small internal hemorrhoids, took a picture of this and then removed the scope. The patient tolerated the procedure and was recovered in endoscopy suite. Job ID: [id number] DocumentID: [id number] Dictated Date: 03/11/2020 17:41:05 Communications Clerk Date: 03/12/2020 04:41:20 Dictated By: DO LOREN GUZMAN
[2020-03-12 05:31] LABS: BASOPHILS % (AUTO) 0 % (0-10); EOSINOPHILS # (AUTO) 0.1 10^3/uL (0.0-0.3); EOSINOPHILS % (AUTO) 1 % (0-10); HEMATOCRIT 25 % (40-54); HEMOGLOBIN 8.3 G/DL (13.3-17.7); LYMPHOCYTES # (AUTO) 0.7 X 10^3 (1.0-4.0); LYMPHOCYTES % (AUTO) 10 % (12-44); MEAN CORPUSCULAR HEMOGLOBIN 35 PG (25-34); MEAN CORPUSCULAR HGB CONC 33 G/DL (32-36); MEAN CORPUSCULAR VOLUME 105 FL (80-99); MEAN PLATELET VOLUME 11.2 FL (7.4-10.4); MONOCYTES # (AUTO) 0.8 X 10^3 (0.0-1.0); MONOCYTES % (AUTO) 11 % (0-12); NEUTROPHILS # (AUTO) 5.8 X 10^3 (1.8-7.8); NEUTROPHILS % (AUTO) 78 % (42-75); PLATELET COUNT 117 10^3/uL (130-400); RED CELL DISTRIBUTION WIDTH 15.7 % (10.0-14.5); WHITE BLOOD COUNT 7.4 10^3/uL (4.3-11.0)
[2020-03-12 05:55] LABS: ALANINE AMINOTRANSFERASE 94 U/L (0-55); ALBUMIN 2.6 GM/DL (3.2-4.5); ALKALINE PHOSPHATASE 186 U/L (40-136); BILIRUBIN,TOTAL 2.2 MG/DL (0.1-1.0); BUN/CREATININE RATIO 8; CALCIUM 8.5 MG/DL (8.5-10.1); CARBON DIOXIDE 24 MMOL/L (21-32); CHLORIDE 104 MMOL/L (98-107); CREATININE SERUM 1.04 MG/DL (0.60-1.30); GFR ESTIMATED > 60; GLUCOSE 106 MG/DL (70-105); POTASSIUM 3.1 MMOL/L (3.6-5.0); SODIUM 138 MMOL/L (135-145); TOTAL PROTEIN 5.5 GM/DL (6.4-8.2)
[2020-03-12] MEDS: KCL 10 MEQ TAB (MICRO K) PO SCH ×2 (08:27→12:35)
[2020-03-12] MEDS: PANTOPRAZOLE 40 MG (PROTONIX) TAB PO SCH (08:28)
[2020-03-12] MEDS: CHOLESTYRAMINE 4 GM (QUESTRAN LITE, PREVALITE) PKT PO SCH (08:28)
[2020-03-12] MEDS: CLOPIDOGREL 75 MG (PLAVIX) TABLET PO SCH (08:28)
[2020-03-12] MEDS: meTOproloL SUCCINATE 50 MG (TOPROL XL) TAB PO SCH (08:28)
[2020-03-12] MEDS: LOSARTAN 25 MG (COZAAR) TAB PO SCH (08:28)
[2020-03-12] MEDS: amLODIPine 5 MG (NORVASC) TAB PO SCH (08:28)
[2020-03-12] MEDS: FAMOTIDINE 20 MG (PEPCID) TABLET PO SCH (08:28)
--- NOTE | 2020-03-12 08:43 | Progress Note - Surgery ---
Subjective Date Seen by a Provider: Mar 12, 2020 Time Seen by a Provider: 08:25 Subjective/Events-last exam Patient states he is doing well and has been eating well since yesterday. He denies having any abdominal pain or other current pain. He has been able to walk around more and states he is ready to go home. States reports normal bowel moments, no diarrhea no constipation Objective Exam Vital Signs Date Time Temp Pulse Resp B/P (MAP) Pulse Ox O2 Delivery O2 Flow Rate FiO2 03/12/20 08:16 36.8 72 18 168/96 (120) 98 Room Air 03/12/20 04:09 36.5 65 18 154/83 (106) 97 Room Air 03/12/20 00:00 36.6 61 18 137/78 (97) 98 Room Air 03/11/20 20:01 Room Air 03/11/20 19:09 36.7 61 16 146/77 (100) 98 Room Air 03/11/20 15:23 36.6 74 16 168/85 (112) 98 Room Air 03/11/20 13:20 55 16 98 Room Air 03/11/20 13:15 56 16 97 Room Air 03/11/20 13:10 49 16 98 Room Air 03/11/20 13:05 55 20 99 OxyMask 5 03/11/20 13:00 48 16 100 OxyMask 5 03/11/20 12:55 53 16 100 OxyMask 5 03/11/20 12:04 36.9 60 18 144/82 (102) 94 Room Air I & O 03/12/20 07:00 Intake Total 3280 ml Balance 3280 ml Capillary Refill : Less Than 3 Seconds General Appearance: No Apparent Distress, WD/WN, Thin Neck: Normal Inspection, Non Tender; No Carotid Bruit Respiratory: Chest Non Tender, Normal Breath Sounds, No Accessory Muscle Use, No Respiratory Distress, Wheezing (mild, occasional expiratory. States is normal before he coughs up phlegm in the morning) Cardiovascular: Regular Rate, Rhythm, No Edema, No Murmur Peripheral Pulses: 2+ Carotid (R), 2+ Carotid (L), 2+ Dorsalis Pedis (R), 2+ Left Dors-Pedis (L) Gastrointestinal: non tender, soft, no organomegaly Extremity: Normal Inspection, Non Tender, No Pedal Edema Neurologic/Psychiatric: Alert, Normal Mood/Affect Skin: Normal Color, Warm/Dry Results Lab Laboratory Tests 03/12/20 05:18: White Blood Count 7.4, Red Blood Count 2.40L, Hemoglobin 8.3L, Hematocrit 25L, Mean Corpuscular Volume 105H, Mean Corpuscular Hemoglobin 35H, Mean Corpuscular Hemoglobin Concent 33, Red Cell Distribution Width 15.7H, Platelet Count 117L, Mean Platelet Volume 11.2H, Neutrophils (%) (Auto) 78H, Lymphocytes (%) (Auto) 10L, Monocytes (%) (Auto) 11, Eosinophils (%) (Auto) 1, Basophils (%) (Auto) 0, Neutrophils # (Auto) 5.8, Lymphocytes # (Auto) 0.7L, Monocytes # (Auto) 0.8, Eosinophils # (Auto) 0.1, Basophils # (Auto) 0.0, Sodium Level 138, Potassium Level 3.1L, Chloride Level 104, Carbon Dioxide Level 24, Anion Gap 10, Blood Urea Nitrogen 8, Creatinine 1.04, Estimat Glomerular Filtration Rate > 60, BUN/Creatinine Ratio 8, Glucose Level 106H, Calcium Level 8.5, Corrected Calcium 9.6, Total Bilirubin 2.2H, Aspartate Amino Transf (AST/SGOT) 102H, Alanine Aminotransferase (ALT/SGPT) 94H, Alkaline Phosphatase 186H, Total Protein 5.5L, Albumin 2.6L Microbiology 03/10/20 MRSA Screen - Final, Complete MRSA not isolated 03/06/20 Stool Culture - Final, Complete See Comments Assessment/Plan Assessment/Plan Assessment/Plan ??Jenni of the Esophagus Gastritis Colon polyps Diverticula Internal hemorrhoids Clinical Quality Measures DVT/VTE Risk/Contraindication: Risk Factor Score Per Nursin RFS Level Per Nursing on Admit: 2=Moderate RACHEL ROWE MED STUDENT Mar 12, 2020 08:43
--- NOTE | 2020-03-12 09:06 | Anesthesia-General Post-Op ---
MAC Patient Condition Mental Status/LOC: Same as Preop Cardiovascular: Satisfactory Nausea/Vomiting: Absent Respiratory: Satisfactory Pain: Controlled Complications: Absent Post Op Complications Complications None Follow Up Care/Instructions Patient Instructions None needed. Anesthesiology Discharge Order Discharge Order Patient is doing well, no complaints, stable vital signs, no apparent adverse anesthesia problems. No complications reported per nursing. RONY ARAUJO CRNA Mar 12, 2020 09:05
--- NOTE | 2020-03-12 10:19 | NUR ---
i originallyt took report on this patient and passed meds then handed off to opal bertrand.
[2020-03-12] MEDS ORDERED: VANCOMYCIN 50 MG/ML ORAL SOLN 150 ML PO SCH (11:00)
[2020-03-12] MEDS ORDERED: VANC50SO PO (11:19)
[2020-03-12] MEDS ORDERED: LORA-404 PO (11:32)
[2020-03-12] MEDS ORDERED: CHOL4PAC3 PO (11:32)
[2020-03-12] MEDS ORDERED: POTA10TA6 PO (11:32)
--- NOTE | 2020-03-12 11:34 | Discharge Summary ---
Discharge Summary Hospital Course Was the Problem List Reviewed?: Yes Problems/Dx: (1) C. difficile colitis (2) Transaminitis Status: Acute (3) Generalized weakness Status: Acute (4) Elevated bilirubin Status: Acute (5) Diarrhea Status: Acute (6) Dehydration Status: Acute Hospital Course Date of Admission: Mar 06, 2020 at 16:25 Admission Diagnosis : Family Physician/Provider: Denny Dixon MD Date of Discharge: 03/12/20 Discharge Diagnosis: Assessment: C.Diff colitis Severe weight loss 120 pounds in past six months Chronic pain Acute alcoholic hepatitis Plan: Supportive care Vancomycin po IV fluids 03/09/20: Alcohol withdrawal protocol Appreciate Dr. Oscar to assess gallbladder thickening Treat c diff with Vancomycin po Monitor liver function Monitor hemoglobin of 9.0 03/10/20: Monitor hemoglobin Supplement potassium Continue C Diff treatment Patient appears to be very chronically ill at high risk for decompensation 03/11/20: EGD/colonoscopy today by Dr. Oscar Continue Vancomycin for c. Diff colitis Discharge home Sunday Hospital Course: Hospital course: Pt had an uneventful hospital course, although lengthy. He was admitted for 120lb weight loss in the last six months with severe diarrhea. He was placed on empiric antibiotics for presumed colitis, but C-Diff colitis was diagnosed, Pt was placed on Vancomycin orally, placed on Questran with good results. He did undergo an EGD and colonoscopy by Dr. Oscar to evaluate the weight loss source and that was all negative so he was discharged in improved condition and his stools were becoming more formed. Labs and Pending Lab Test: Laboratory Tests 03/12/20 05:18: White Blood Count 7.4, Red Blood Count 2.40L, Hemoglobin 8.3L, Hematocrit 25L, Mean Corpuscular Volume 105H, Mean Corpuscular Hemoglobin 35H, Mean Corpuscular Hemoglobin Concent 33, Red Cell Distribution Width 15.7H, Platelet Count 117L, M butch Platelet Volume 11.2H, Neutrophils (%) (Auto) 78H, Lymphocytes (%) (Auto) 10L, Monocytes (%) (Auto) 11, Eosinophils (%) (Auto) 1, Basophils (%) (Auto) 0, Neutrophils # (Auto) 5.8, Lymphocytes # (Auto) 0.7L, Monocytes # (Auto) 0.8, Eosinophils # (Auto) 0.1, Basophils # (Auto) 0.0, Sodium Level 138, Potassium Level 3.1L, Chloride Level 104, Carbon Dioxide Level 24, Anion Gap 10, Blood Urea Nitrogen 8, Creatinine 1.04, Estimat Glomerular Filtration Rate > 60, BUN/Creatinine Ratio 8, Glucose Level 106H, Calcium Level 8.5, Corrected Calcium 9.6, Total Bilirubin 2.2H, Aspartate Amino Transf (AST/SGOT) 102H, Alanine Aminotransferase (ALT/SGPT) 94H, Alkaline Phosphatase 186H, Total Protein 5.5L, Albumin 2.6L Microbiology 03/10/20 MRSA Screen - Final, Complete MRSA not isolated 03/06/20 Stool Culture - Final, Complete See Comments Home Meds Active Ativan (Lorazepam) 0.5 Mg Tablet 0.5 Mg PO BID PRN Klor-Con 10 (Potassium Chloride) 10 Meq Tablet.er 10 Meq PO TIDWM Prevalite Packet (Cholestyramine/Aspartame) 4 Gm Powd.pack 4 Gm PO BID Firvanq (Vancomycin HCl) 50 Mg/1 Ml Soln.recon 125 Mg PO UD 9 Days TAKE 2.5ML (125MG) BY MOUTH THREE TIMES DAILY X 3 DAYS, THEN TWICE DAILY X 3 DAYS, THEN ONCE DAILY X 3 DAYS AND STOP Reported Aspirin EC (Aspirin) 81 Mg Tablet.dr 81 Mg PO 1200 Trazodone HCl 50 Mg Tablet 50 Mg PO HS PRN Citalopram HBr (Citalopram Hydrobromide) 40 Mg Tablet 40 Mg PO 1200 Losartan Potassium 25 Mg Tablet 25 Mg PO 1200 Amlodipine Besylate 5 Mg Tablet 5 Mg PO 1200 Pantoprazole Sodium 40 Mg Tablet.dr 40 Mg PO 1200 Clopidogrel (Clopidogrel Bisulfate) 75 Mg Tablet 75 Mg PO 1200 Metoprolol Succinate 50 Mg Tab.er.24h 50 Mg PO 1200 Assessment/Pt Instructions PCP in 1 week Discharge Planning: <30 minutes discharge planning Discharge Instructions Discharge Diet: No Restrictions Activity as Tolerated: Yes Discharge Physical Examination Vital Signs Vital Signs Date Time Temp Pulse Resp B/P (MAP) Pulse Ox O2 Delivery O2 Flow Rate FiO2 03/12/20 11:15 69 160/92 (114) 03/12/20 09:45 Room Air 03/12/20 08:16 36.8 18 98 03/11/20 13:05 5 General Appearance: No Apparent Distress, WD/WN HEENT: PERRL/EOMI, TMs Normal, Normal ENT Inspection, Pharynx Normal, Moist Mucous Membranes Respiratory: Chest Non Tender, Lungs Clear, Normal Breath Sounds, No Accessory Muscle Use, No Respiratory Distress Cardiovascular: Regular Rate, Rhythm, No Edema, No Gallop, No JVD, No Murmur, Normal Peripheral Pulses Gastrointestinal: Normal Bowel Sounds, No Organomegaly, No Pulsatile Mass, Non Tender, Soft Extremity: Normal Capillary Refill, Normal Inspection, Normal Range of Motion, Non Tender, No Calf Tenderness, No Pedal Edema Skin: Normal Color, Warm/Dry Neurologic/Psychiatric: Alert, Oriented x3, No Motor/Sensory Deficits, Normal Mood/Affect Allergies: Coded Allergies: codeine (Verified Allergy, Unknown, itching, 03/06/20) lisinopril (Verified Allergy, Unknown, angioedema , 03/06/20) Discharge Summary Date of Admission Mar 06, 2020 at 16:25 Date of Discharge Discharge Date: Mar 12, 2020 Admission Diagnosis Diarrhea with weight loss C to positive started on Flagyl and Questran Elevated liver function tests most likely secondary to chronic alcohol abuse Tobaccoism Peripheral vascular disease Coronary artery disease Discharge Diagnosis Assessment: C.Diff colitis Severe weight loss 120 pounds in past six months Chronic pain Acute alcoholic hepatitis Plan: Supportive care Vancomycin po IV fluids 03/09/20: Alcohol withdrawal protocol Appreciate Dr. Oscar to assess gallbladder thickening Treat c diff with Vancomycin po Monitor liver function Monitor hemoglobin of 9.0 03/10/20: Monitor hemoglobin Supplement potassium Continue C Diff treatment Patient appears to be very chronically ill at high risk for decompensation 03/11/20: EGD/colonoscopy today by Dr. Oscar Continue Vancomycin for c. Diff colitis Discharge home Sunday (1) C. difficile colitis (2) Transaminitis Status: Acute (3) Generalized weakness Status: Acute (4) Elevated bilirubin Status: Acute (5) Diarrhea Status: Acute (6) Dehydration Status: Acute Clinical Quality Measures DVT/VTE Risk/Contraindication: Risk Factor Score Per Nursin RFS Level Per Nursing on Admit: 2=Moderate COLEMAN PINTO DO Mar 12, 2020 11:34
== END 2020-03-12 12:40 | disposition home or self-care (01) | DRG 372 ==
LOC: ER FS 12:03 → 4TH 16:25
PROVIDERS: ADMIT Internal Medicine; ATTEND Internal Medicine
PROC: 0DD58ZX Extraction of Esophagus, Via Natural or Artificial Opening Endoscopic, Diagnostic (ICD-10-PCS; 2020-03-11)
PROC: 0DBK8ZZ Excision of Ascending Colon, Via Natural or Artificial Opening Endoscopic (ICD-10-PCS; 2020-03-11)
PROC: 0DBM8ZZ Excision of Descending Colon, Via Natural or Artificial Opening Endoscopic (ICD-10-PCS; 2020-03-11)
PROC: 0DB48ZX Excision of Esophagogastric Junction, Via Natural or Artificial Opening Endoscopic, Diagnostic (ICD-10-PCS; principal; 2020-03-11 15:00)
PROC: 0DB68ZX Excision of Stomach, Via Natural or Artificial Opening Endoscopic, Diagnostic (ICD-10-PCS; 2020-03-11 15:00)
DX: A04.72 Enterocolitis due to Clostridium difficile, not specified as recurrent (principal); B37.81 Candidal esophagitis; E86.0 Dehydration; R63.4 Abnormal weight loss; F10.20 Alcohol dependence, uncomplicated; K70.10 Alcoholic hepatitis without ascites; K76.0 Fatty (change of) liver, not elsewhere classified; I25.10 Atherosclerotic heart disease of native coronary artery without angina pectoris; J44.9 Chronic obstructive pulmonary disease, unspecified; F17.210 Nicotine dependence, cigarettes, uncomplicated; I73.9 Peripheral vascular disease, unspecified; F32.9 Major depressive disorder, single episode, unspecified; R74.0 Nonspecific elevation of levels of transaminase and lactic acid dehydrogenase [LDH]; Z95.828 Presence of other vascular implants and grafts; K64.8 Other hemorrhoids; G89.29 Other chronic pain; K29.70 Gastritis, unspecified, without bleeding; K57.30 Diverticulosis of large intestine without perforation or abscess without bleeding; K63.5 Polyp of colon; K44.9 Diaphragmatic hernia without obstruction or gangrene
CPT/HCPCS: 36415; 70450; 71260; 74177; 76705; 80053; 80320; 81000; 82247; 82248; 82607; 83605; 83690; 83735; 84443; 84484; 85025; 85610; 85730; 87015; 87045; 87046; 87081; 87101; 87106; 87324; 87449; 87635; 87899; 88112; 93005; 96360; 96361